=== PATIENT | female | born 1940 | race Caucasian/White ===

== ENCOUNTER → 2017-06-26 | Outpatient (CLI) | payer MEDICARE, BC ==
--- NOTE | 2017-06-26 16:37 | MR ---
EXAMINATION TYPE: MR lumbar spine wo con DATE OF EXAM: 06/26/2017 COMPARISON: 04/20/2015 HISTORY: Low back pain for many years, bilateral leg pain previous MRI on PACS CONTRAST: 0 mL intravenous Gadavist. TECHNIQUE: Multiplanar, multisequence images of the lumbar spine were acquired. FINDINGS: L5-S1: No significant disc bulge or disc herniation. No spinal canal stenosis. No foraminal stenosi s. Facet hypertrophy is present.. L4-L5: Mild disc bulge is present. Facet hypertrophy is present with posterior lateral thecal sac co ntact. No AP spinal canal stenosis is present. Neural foramen are patent. There is a minimal grade 1 spondylolisthesis at the L5-S1 level. L3-L4: No significant disc bulge or disc herniation. No spinal canal stenosis. No foraminal stenosi s. Neural foramen are patent.. L2-L3: No significant disc bulge or disc herniation. No spinal canal stenosis. No foraminal stenosi s. Neural foramen are patent.. L1-L2: No significant disc bulge or disc herniation. No spinal canal stenosis. No foraminal stenosi s. Neural foramen are patent.. T12-L1: No significant disc bulge or disc herniation. No spinal canal stenosis. No foraminal stenos is. Neural foramen are patent.. Exam is stable from comparison. IMPRESSION: 1. Disc bulging L4-5 with mild anterior thecal sac flattening and facet hypertrophy with posterior la teral thecal sac contact. Very minimal grade 1 spondylolisthesis may be present. The findings are sta ble from the comparison 2014.
== END | disposition home or self-care (01) ==
LOC: RADMRIMAIN 15:27
PROVIDERS: ATTEND Psychiatry & Neurology Neurology
DX: M51.26 Other intervertebral disc displacement, lumbar region (principal); Z88.0 Allergy status to penicillin
CPT/HCPCS: 72148

== ENCOUNTER → 2018-08-05 | Outpatient (CLI) | payer MEDICARE, BC ==
--- NOTE | 2018-08-07 10:11 | MM ---
Reason for exam: screening (asymptomatic). Last mammogram was performed 20 years and 2 months ago. History: Patient is postmenopausal and is nulliparous. Silicone gel implant in the left breast. Silicone gel implant in the right breast. Took estrogen for 14 years. Physical Findings: A clinical breast exam by your physician is recommended on an annual basis and results should be correlated with mammographic findings. MG Screening Mammo Implant/CAD Bilateral CC, MLO, and ID view(s) were taken. No prior studies available for comparison. There is no discrete abnormality. Bilateral breast prothesis. These results were verbally communicated with the patient and result sheet given to the patient on 08/05/18. ASSESSMENT: Negative, BI-RAD 1 RECOMMENDATION: Routine screening mammogram of both breasts in 1 year.
== END | disposition home or self-care (01) ==
LOC: RADMAMWWP 14:36
PROVIDERS: ATTEND Surgery
DX: Z12.31 Encounter for screening mammogram for malignant neoplasm of breast (principal)
CPT/HCPCS: 77067

== ENCOUNTER → 2018-10-15 | Outpatient (CLI) | payer MEDICARE, BC ==
--- NOTE | 2018-10-16 11:59 | BD ---
EXAMINATION TYPE: Axial Bone Density DATE OF EXAM: 10/15/2018 COMPARISON: 2008 CLINICAL HISTORY: Postmenopausal female. Osteoporosis screening. Height: 5FT 6 IN Weight: 261 FRAX RISK QUESTIONS: History of Fracture in Adulthood: YES Secondary Osteoporosis: 3. Menopause before 45: UNSURE Rheumatoid Arthritis: YES RISK FACTORS HISTORY OF: Family History of Osteoporosis: YES Active: NO Postmenopausal woman: TOTAL HYST UNSURE WHEN MEDICATIONS: Additional Medications: METHOTREXATE INJ ONCE A WEEK ,PROZAC, GABAPENTIN, TRAZADONE, CLONIPIN, ACETA METAPHEN, Additional History: EXAM MEASUREMENTS: Bone mineral densitometry was performed using the hopscout System. Bone mineral density as measured about the Lumbar spine is: ----- L1-L4(G/cm2): 1.066 T Score Values are as follows: ----- L2: -1.1 ----- L3: -1.4 ----- L4: -0.4 ----- L1-L4: -1.0 Bone mineral density has: DECREASED -4.7 % since study of: 2008 Bone mineral density about the R hip (g/cm2): 0.833 Bone mineral density about the L hip (g/cm2): 0.742 T Score values are as follows: -----R Neck: -1.5 -----L Neck: -2.1 -----R Total: -0.7 -----L Total: -0.9 Bone mineral density has: DECREASED -8.2 % since study of: 2008 IMPRESSION: Osteopenia (T Score between -2.5 and -1). There is slightly increased risk of fracture and the patient may be considered for treatment. Re-Screen 2-5 years. NOTE: T-SCORE=SD OF THE YOUNG ADULT MEAN.
== END | disposition home or self-care (01) ==
LOC: RADBDWWP 14:02
PROVIDERS: ATTEND Internal Medicine Geriatric Medicine
DX: M85.80 Other specified disorders of bone density and structure, unspecified site (principal)
CPT/HCPCS: 77080

== ENCOUNTER → 2019-12-22 | Outpatient (CLI) | payer MEDICARE, BC ==
[2019-12-22 13:46] VITALS: BP 134/77; PULSE 60; RESP 18
--- NOTE | 2019-12-22 14:07 | P.PAINCN ---
History of Present Illness - Reason for Consult Consult date: 12/22/19 - History of Present Illness This is an initial consultation visit for this 79 years old female with a chronic history of severe low back pain, pain started almost 15 years ago, she denies any initiating event , the pain is constant and increases with any activity interference with the quality of life, mostly localized in the low back area with radiation to the hip bilaterally and the buttock, the intensity of the pain interfering with her ability to ambulate, she uses a cane to ambulate, she denies any fever or night sweats denies , intensity of the pain is 6/10 increased with any activities to 8-9/10, she is currently on Neurontin 300 mg 3 times a day and Motrin 800 mg 3 times a day with minimal benefit. Past Medical History Past Medical History: Fibromyalgia, GERD/Reflux, Rheumatoid Arthritis (RA) Additional Past Medical History / Comment(s): OSTEOPOROSIS. CHRONIC BACK PAIN History of Any Multi-Drug Resistant Organisms: None Reported Past Surgical History: Adenoidectomy, Appendectomy, Hysterectomy, Joint Replacement, Tonsillectomy Additional Past Surgical History / Comment(s): RT TKA Past Anesthesia/Blood Transfusion Reactions: No Reported Reaction Past Psychological History: Anxiety, Depression Smoking Status: Never smoker Past Alcohol Use History: None Reported Past Drug Use History: None Reported - Past Family History Father Family Medical History: Coronary Artery Disease (CAD) Mother Family Medical History: Coronary Artery Disease (CAD) Medications and Allergies Home Medications Medication Instructions Recorded Confirmed Type FLUoxetine HCL [PROzac] 60 mg PO DAILY 05/06/17 12/22/19 History Gabapentin [Neurontin] 300 mg PO TID 05/06/17 12/22/19 History Omeprazole 20 mg PO DAILY PRN 05/06/17 12/22/19 History clonazePAM [Clonazepam] 2 mg PO HS 05/06/17 12/22/19 History traZODone HCL [TraZODone HCl] 150 mg PO HS 05/06/17 12/22/19 History Ibuprofen [Motrin] 800 mg PO Q4-6H PRN 08/20/17 12/22/19 History Acetaminophen [Tylenol 8 Hour] 650 mg PO DAILY PRN 12/21/19 12/22/19 History Methotrexate/Pf [Rasuvo 10 mg/0.2 50 mg SQ TU 12/21/19 12/22/19 History ml Autoinj] Allergies Allergy/AdvReac Type Severity Reaction Status Date / Time ciprofloxacin [From Cipro] Allergy Severe Nausea & Verified 12/21/19 12:44 Vomiting & Diarrhea Penicillins Allergy Severe Swelling Verified 12/21/19 12:44 morphine AdvReac Nausea & Verified 12/21/19 12:44 Vomiting Physical Exam Vitals: Vital Signs Pulse Resp BP Pulse Ox 12/22/19 13:42 60 18 134/77 94 L REVIEW OF ORGAN SYSTEMS: CONSTITUTIONAL: No fevers or chills. No recent weight loss. EYES: denies troubles with vision. HEENT: No difficulties with hearing. No nosebleeds. No difficulty swallowing. RESPIRATORY: Denies any troubles with breathing or dyspnea on exertion. CARDIOVASCULAR: Denies any chest pain, palpitations, or recent heart attacks. GASTROINTESTINAL: Denies fatty food intolerance. Has change in bowel habits and gas bloat. GENITOURINARY: Denies any blood in urine. Has increased urinary frequency. NEUROLOGICA=. No seizure disorders or headaches. MUSCULOSKELETAL: Has back pain with radiation to the hips and buttock area. SKIN:no skin cancer. No rash. PSYCHIATRIC: Denies current depression or suicidal thoughts. ENDOCRINE: Denies current thyroid disorders. Denies any blood sugar glucose intolerance. HEME/LYMPHATIC: Denies any lumps and bumps around the neck. History of deep venous thrombosis. ALLERGY/IMMUNOLOGY: No immunoglobulin therapy. No immune deficiencies. BREAST: Denies current breast lumps, pain or nipple discharge. Physical Examinations : Constitutiona : Cooperative , not in acute distress . HEENT : nech : supple , no Lymphadenopathy , normal thyroid size . : eyes no ptosis , no icterus, no photophobia . : ENT normal of hearing , no rmal oropharynx , no Thrush . Respiratory : Chest clear to auscultations Bilaterally , no wheezing , no Rhonchi . Cardiovascula : regular rate and rhythem , S1 , S2 , no S3 , no S4. Gastrointestina : abdomen soft no tenderness , bowel sounds , no organomegally . Genitourinary : Defferred . neurologic : Cranial nerve II to XII intact , no focal neurological deffecit . psychatric : alert , oriented X 3 , appropriate affect , intact judgment and insight . Lymphatic : no Lymphadenopathy . musculoskeltal : Lumber spine moter stegnth lower extremities ,thigh and legs 5/5 Right side , 5/5 Left side deep tendon reflexes : normal Knee Jerk , normal ankle Jerk lumber facet Loading Test= positive Right , positive Left Range of motion of the lumbar spine Flexion 30 degrees, extension 10 degrees strait leg raising test = positive at 60 degree on the left side and is negative on the right side Fabere test= negative bilaterally Sever tenderness over the Sacroiliac joint on the Right , and Left sides Gaenslen test= positive bilaterally. Seated flexion test= positive bilaterally. Results Comments: MRI of the lumbar spine done at [facility]= L4 5 and L5-S1 lumbar facet arthropathy Assessment and Plan Plan: Assessment and plan= chronic severe low back pain secondary to lumbar spondylosis and lumbar facet arthropathy Patient will be good candidate for diagnostic medial branch block lumbar area at L3, L4 ,L5 (to target the facet joint at the L4-5 ,L5-S1 ) Benefits positive then will proceed with radiofrequency thermocoagulation. Time with Patient: Greater than 30 PQRS Measure Charge Sheet Measure #130: Documentation of Current Meds in Medical Chart: Patient's medications documented in chart Measure #226: Tobacco Use: Screen & Cessation Intervention: Pt not a tobacco user Measure #111: Pneumonia Vaccination: Pneumococcal vaccine NOT administered or previously given Measure #47: Advance Care Plan: Advance care planning discussed & documented, pt chose/unable to give Measure #412: Opioid Treatment Agreement: No documentation of signed opioid treatment agreement Measure #408: Opioid Therapy Follow-up Evaluation: Patient had NO f/u eval minimum every 3 months during opioid therapy Measure #317: Preventitive Care & Scrn High Bld Press & F/U: Normal blood pressure, f/u not required Measure #128: Body Mass Index (BMI) Screening & Follow-up: BMI documented ABOVE normal parameters - f/u documented Measure #131: Pain Assessment & Follow-up: Pain positive & plan documented, F ollow-up scheduled Measure #431: Unhealthy Alcohol Use Preventative Care & Scrn: Patient not identified as an unhealthy alcohol user PQRS Narrative: Smoking Status Never smoker Blood Pressure 134/77 Pain Intensity [Lower Back] 8 Scale Used Numeric (1 - 10) Home Medications: Ambulatory Orders FLUoxetine HCL [PROzac] 60 mg PO DAILY 05/06/17 Gabapentin [Neurontin] 300 mg PO TID 05/06/17 Omeprazole 20 mg PO DAILY PRN 05/06/17 clonazePAM [Clonazepam] 2 mg PO HS 05/06/17 traZODone HCL [TraZODone HCl] 150 mg PO HS 05/06/17 Ibuprofen [Motrin] 800 mg PO Q4-6H PRN 08/20/17 Acetaminophen [Tylenol 8 Hour] 650 mg PO DAILY PRN 12/21/19 Methotrexate/Pf [Rasuvo 10 mg/0.2 ml Autoinj] 50 mg SQ TU 12/21/19
== END | disposition home or self-care (01) ==
LOC: PNWHC3 12:21
PROVIDERS: ATTEND Specialist
DX: G89.29 Other chronic pain (principal); M47.816 Spondylosis without myelopathy or radiculopathy, lumbar region; M81.0 Age-related osteoporosis without current pathological fracture; M06.9 Rheumatoid arthritis, unspecified; Z79.1 Long term (current) use of non-steroidal anti-inflammatories (NSAID); Z79.899 Other long term (current) drug therapy; Z88.1 Allergy status to other antibiotic agents; Z88.0 Allergy status to penicillin; Z88.5 Allergy status to narcotic agent
CPT/HCPCS: 99211

== ENCOUNTER → 2020-01-07 | Day surgery (SDC) | payer MEDICARE, BC ==
[2020-01-06 08:40] VITALS: BMI 41.0
[~2020-01-07] MED LIST: IOPAMIDOL M200 10 ML VIAL ONE; IV FLUID CONTINUATION 1,000 ML IV ONE; LACTATED RINGERS 1,000 ML IV SCH; LIDOCAINE 1% (10MG/ML) FOR IV START INTRADERMA ONE; LIDOCAINE 4% (PF) 5 ML AMP ONE; MIDAZOLAM 2 MG/2 ML VIAL ONE
[2020-01-07 09:16] VITALS: RESP 16; TEMP 98.3
[2020-01-07 09:37] LABS: Glucose,Whole Blood 115 mg/dL (75-99)
--- NOTE | 2020-01-07 10:20 | FL ---
EXAMINATION TYPE: FL guided pain mgmt statistic DATE OF EXAM: 01/07/2020 CLINICAL HISTORY: Low back pain. TECHNIQUE: Fluoroscopy. COMPARISON: None. FINDINGS: Fluoroscopic guidance was provided during pain relief procedure performed by Dr. Lance. A t otal of 5 seconds of fluoroscopic time was utilized during the procedure and 3 spot images are acquir ed. Images acquired shows needle localization at several levels in the lower lumbar spine. IMPRESSION: As Above.
[2020-01-07 10:24] VITALS: BP 133/77; PULSE 57
--- NOTE | 2020-01-07 11:42 | P.PCN ---
Date of Procedure: 01/07/20 Procedure(s) Performed: PREOPERATIVE DIAGNOSIS : Lumbar spondylosis with Facet Arthropathy without myelopathy POSTOPERATIVE DIAGNOSIS: same PROCEDURE: First Diagnostic lumbar medial branch block with fluoroscopy at L3, L4, L5 [bilateral] which covers facets L4-5 and L5-S1 ANESTHESIA: Local anesthetic; moderate IV sedation with Versed, sedation time 10 minutes Fluoroscopy was used for the procedure and images were saved in the radiology portion of the chart. Surgeon: Asael Lance MD PROCEDURE INDICATION: Lumbar back pain without radiculopathy, not responsive to conservative management. PROCEDURE DESCRIPTION: the patient was seen and identified in the preop holding area , risks and benefits and possible complications of the procedure and alternatives were discussed with the patient, and the patient agreed to proceed with the procedure and signed the consent . IV was started , vital signs were monitored during the procedure and fluoroscopy was used to maximize the benefit and accuracy of the needle placement, and sedation was given to decrease patient anxiety. Patient was taken to the procedure room and placed in prone position. The lumbar region was prepped using chlorhexidineX-2. Under strict sterile technique using AP fluoroscopy the bilateral sacral ala were identified and using ipsilateral oblique fluoroscopy ,the junction of the transverse process and the superior articulating process of the L4, L5 vertebra which corresponds to the fluoroscopy image of the eye of the Reinaldo dog for the medial branches were identified. Subsequently, after local infiltration of skin with lidocaine 1% 0.2 mL at each level , a 22-gauge 5 inch Quincke-type needle was placed at the junction of the base of the transverse process and the superior articular process at the appropriate level as well as the sacral ala, and the needle was advanced until the periosteum contacted, needle placement confirmed with AP and oblique fluoroscopy, 0.2 mL of Isovue 200 per level was injected which revealed no vascular uptake and after negative aspiration, 0.5 mL of lidocaine 4% was injected at each level and the needle subsequently removed . At the end of the procedure and the needles were removed and a bandage applied after the skin was cleaned. The patient was taken to recovery room in stable condition and monitors in the recovery room for 20-30 minutes and discharged home in stable condition after discharge criteria met and patient will follow up in clinic in 2 weeks EBL: Minimal COMPLICATION: None.
== END ==
LOC: ORPAIN 08:32
PROVIDERS: ATTEND Anesthesiology
DX: M47.816 Spondylosis without myelopathy or radiculopathy, lumbar region (principal); Z90.710 Acquired absence of both cervix and uterus; Z88.0 Allergy status to penicillin; Z88.5 Allergy status to narcotic agent
CPT/HCPCS: 64493; 64494; J2001; J2250; Q9966; 99152

== ENCOUNTER → 2020-01-28 | Day surgery (SDC) | payer MEDICARE, BC ==
[2020-01-27 08:37] VITALS: BMI 41.0
[~2020-01-28] MED LIST changes: -IOPAMIDOL M200 10 ML VIAL ONE; +LACTATED RINGERS 1,000 ML IV ONE; -LIDOCAINE 4% (PF) 5 ML AMP ONE; +ROPIVACAINE 5MG/ML 20ML VIAL ONE; +fentaNYL (PF) 50 MCG/ML 2 ML AMP ONE; +methylPREDNISolone ACETATE 40 MG/ML 1 ML VIAL ONE
[2020-01-28 09:35] VITALS: RESP 20; TEMP 97.9
[2020-01-28 09:44] LABS: Glucose,Whole Blood 115 mg/dL (75-99)
--- NOTE | 2020-01-28 10:34 | P.PCN ---
Date of Procedure: 01/28/20 Procedure(s) Performed: PREOPERATIVE DIAGNOSIS : 1- Lumbar spondylosis with Facet Arthropathy without myelopathy . POSTOPERATIVE DIAGNOSIS: 1- Lumbar spondylosis with Facet Arthropathy without myelopathy . PROCEDURE: Diagnostic bilateral L3 , L4 , and L5 medial branch block under fluoroscopy guidance(fluoroscopy images available in the radiology Department ) ( To target the facet joint between L4-5 , and L5-S1 ) ANESTHESIA:, moderate sedation with intravenous Versed 2 mg and Fentanyl 50 mcg. EBL: Minimal COMPLICATION: None. IV FLUIDS: 100 mL of normal saline. PROCEDURE INDICATION: Chronic low back pain secondary to Facet arthropathy unresponsive to conservative treatment. PROCEDURE DESCRIPTION: the patient was seen and identified in the preop holding area , risks and benefits and possible complications of the procedure and alternative were discussed with the patient, and the patient agreed to proceed with the procedure and signed the consent IV was started and vital signs monitored during the procedure and fluoroscopy was used to maximize the benefit and accuracy of the needle placement, and sedation was given to decrease patient anxiety, patient was taken to the procedure room and placed in prone position vital signs monitored in the back prepped with chlorhexidine X3 then under strict sterile technique using a right oblique fluoroscopy ,the junction of the transverse process and the superior articulating process of the right L3 , L4 , and L5 vertebra which corresponding to the fluoroscopy image of the eye of the Reinaldo dog on the block side for the medial branches and subsequently , after local infiltration of skin and subcu tissuies with Ropivacaine 0.5 % , one mL at each level ,then 22-gauge 5 inches long Quincke-type needles , 3 needle was used , each one of them placed at the junction of the base of the transverse process and the superior articular process at the appropriate level, and the needle was advanced until the periosteum contacted, needle placement confirmed with AP oblique and lateral view and after appropriate needle placement confirmed, and after negative aspiration for heme and CSF and there was no paresthesia 1-1/2 mL of Ropivacaine 0.5% mixed with 20 mg Depo-Medrol , then half mL injected at each level after negative aspiration the needle subsequently removed and the same procedure repeated for the left side at left side at L3 , L4 and L5 levels. At the end of the procedure and the needles removed and a bandage applied after the skin was cleaned the cleaning solution patient taken to recovery room in stable condition and monitors in the recovery room for 20-30 minutes and discharged home in stable condition after discharge criteria met and patient will follow up with the pain clinic in 2-4 weeks
[2020-01-28 11:01] VITALS: BP 135/65; PULSE 57
--- NOTE | 2020-01-28 16:43 | FL ---
EXAMINATION TYPE: FL guided pain mgmt statistic DATE OF EXAM: 01/28/2020 CLINICAL HISTORY: Low back pain. TECHNIQUE: Fluoroscopy. COMPARISON: None. FINDINGS: Fluoroscopic guidance was provided during pain relief procedure performed by Dr. Jimenez . A total of 34 seconds of fluoroscopic time was utilized during the procedure and 4 spot images are acquired. Images acquired shows needle localization at multiple levels in the lumbar spine. IMPRESSION: As Above.
== END ==
LOC: ORPAIN 09:08
PROVIDERS: ATTEND Specialist
DX: G89.29 Other chronic pain (principal); M47.816 Spondylosis without myelopathy or radiculopathy, lumbar region; Z90.710 Acquired absence of both cervix and uterus; Z88.0 Allergy status to penicillin; Z88.5 Allergy status to narcotic agent
CPT/HCPCS: 64493; 64494; J2250; J1030; J3010; J2795; 99152

== ENCOUNTER → 2020-02-24 | Outpatient (CLI) | payer MEDICARE, BC ==
[2020-02-24 12:19] VITALS: BP 141/76; PULSE 60; RESP 14
--- NOTE | 2020-02-24 12:49 | P.PN ---
Subjective Progress Note Date: 02/24/20 This is follow up visit for this 80 years old female with a chronic history of s evere low back pain, pain started almost 15 years ago, she denies any initiating event , the pain is constant and increases with any activity interference with the quality of life, mostly localized in the low back area with radiation to the hip bilaterally and the buttock, the intensity of the pain interfering with her ability to ambulate, she uses a cane to ambulate, she denies any fever or night sweats denies , intensity of the pain is 6/10 increased with any activities to 8-9/10, she is currently on Neurontin 300 mg 3 times a day and Motrin 800 mg 3 times a day with minimal benefit. Recently we have done diagnostic medial branch block lumbar area at L3, L4, L5 x2 , she reported that her pain was 9/10 before the first block at dropped to 2/10 after the block but the pain relief was only for a few days, eventually got similar result after the second diagnostic medial branch block Objective - Vital Signs Vital signs: Vital Signs Temp Pulse 60 02/24/20 12:10 Resp 14 02/24/20 12:10 BP 141/76 02/24/20 12:10 Pulse Ox 91 L 02/24/20 12:10 - Exam Constitutiona : Cooperative , not in acute distress . HEENT : nech : supple , no Lymphadenopathy , normal thyroid size . : eyes no ptosis , no icterus, no photophobia . neurologic : Cranial nerve II to XII intact , no focal neurological deffecit . psychatric : alert , oriented X 3 , appropriate affect , intact judgment and insight . Lymphatic : no Lymphadenopathy . musculoskeltal : Lumber spine moter stegnth lower extremities ,thigh and legs 5/5 Right side , 5/5 Left side deep tendon reflexes : normal Knee Jerk , normal ankle Jerk lumber facet Loading Test= positive Right , positive Left Range of motion of the lumbar spine Flexion 30 degrees, extension 10 degrees strait leg raising test = positive at 60 degree on the left side and is negative on the right side Fabere test= negative bilaterally Sever tenderness over the Sacroiliac joint on the Right , and Left sides Gaenslen test= positive bilaterally. Seated flexion test= positive bilaterally. Assessment and Plan Plan: Assessment and plan= chronic severe low back pain secondary to lumbar spondylosis and lumbar facet arthropathy Patient had a good result with the diagnostic medial branch block lumbar area at L3, L4 ,L5 And she will be good candidate to have RFA of the medial branch to denervate the facet joint at L4-5, and L5-S1 ) PQRS Measure Charge Sheet Measure #130: Documentation of Current Meds in Medical Chart: Patient's medications documented in chart Measure #226: Tobacco Use: Screen & Cessation Intervention: Pt not a tobacco user Measure #111: Pneumonia Vaccination: Pneumococcal vaccine NOT administered or previously given Measure #47: Advance Care Plan: Advance care planning discussed & documented, pt chose/unable to give Measure #412: Opioid Treatment Agreement: No documentation of signed opioid treatment agreement Measure #408: Opioid Therapy Follow-up Evaluation: Patient had NO f/u eval minimum every 3 months during opioid therapy Measure #317: Preventitive Care & Scrn High Bld Press & F/U: Elevated blood pressure 141/76, she will follow up with the primary care Measure #128: Body Mass Index (BMI) Screening & Follow-up: BMI documented ABOVE normal parameters - f/u documented Measure #131: Pain Assessment & Follow-up: Pain positive & plan documented, Follow-up scheduled Measure #431: Unhealthy Alcohol Use Preventative Care & Scrn: Patient not identified as an unhealthy alcohol user PQRS Narrative:
== END | disposition home or self-care (01) ==
LOC: PNWHC3 11:42
PROVIDERS: ATTEND Specialist
DX: M47.816 Spondylosis without myelopathy or radiculopathy, lumbar region (principal); M46.96 Unspecified inflammatory spondylopathy, lumbar region; G89.29 Other chronic pain
CPT/HCPCS: 99211

== ENCOUNTER 2020-03-17 08:29 | Day surgery (SDC) | payer MEDICARE, BC ==
[2020-03-15 13:53] VITALS: BMI 41.5
[~2020-03-17 08:29] MED LIST changes: -IV FLUID CONTINUATION 1,000 ML IV ONE; -LACTATED RINGERS 1,000 ML IV ONE; -LIDOCAINE 1% (10MG/ML) FOR IV START INTRADERMA ONE; -MIDAZOLAM 2 MG/2 ML VIAL ONE; -ROPIVACAINE 5MG/ML 20ML VIAL ONE; -fentaNYL (PF) 50 MCG/ML 2 ML AMP ONE; -methylPREDNISolone ACETATE 40 MG/ML 1 ML VIAL ONE
[2020-03-17 09:14] VITALS: TEMP 97.2
[2020-03-17] MEDS ORDERED: LIDOCAINE 1% (10MG/ML) FOR IV START INTRADERMA ONE (09:14)
[2020-03-17] MEDS ORDERED: fentaNYL (PF) 50 MCG/ML 2 ML AMP ONE (09:47)
[2020-03-17] MEDS ORDERED: methylPREDNISolone ACETATE 40 MG/ML 1 ML VIAL ONE (09:47)
[2020-03-17] MEDS ORDERED: MIDAZOLAM 2 MG/2 ML VIAL ONE (09:47)
[2020-03-17] MEDS ORDERED: ROPIVACAINE 5MG/ML 20ML VIAL ONE (09:47)
--- NOTE | 2020-03-17 10:27 | P.PCN ---
Date of Procedure: 03/17/20 Procedure(s) Performed: PREOPERATIVE DIAGNOSIS: 1-Lumbar Spondylosis with Facet Arthropathy without myelopathy. 2- Lumber degenerative disc disease POSTOPERATIVE DIAGNOSIS: 1- Lumbar Spondylosis with Facet Arthropathy without myelopathy. 2- Lumber degenerative disc disease PROCEDURES : Bilateral Radiofrequency thermocoagulation, L3 , L4 , and L5 medial branch, with fluoroscopic guidance (fluoroscopy images available in the radiology department) ( to denervate the facet joint at L4-5 ,and L5-S1 levels ) ANESTHESIA: Moderate sedation with intravenous versed 2 mg and fentaneyl 100 mcg, and local infiltration with Ropivacaine 0.5 % . EBL: Minimal PROCEDURE INDICATION: The patient with low back pain secondary to lumbar facet arthropathy who had more than 50% relief of her pain with previous diagnostic lumbar medial branch block with bupivacaine. PROCEDURE DESCRIPTION / TECHNIQUE: The patient was seen and identified in the preoperative area. Risks, benefits, complications, including but not limited to risk of infection ,bleeding , allergic reactions to the medications and no complete pain releife , and alternatives were discussed with the patient, the patient agreed to proceed with the procedure and signed the consent. IV was started. Vital signs remained stable throughout the procedure. Patient was taken to the OR and time out was completed. The patient was placed in the prone position on the procedure table. The lumber area was prepped and draped in the usual sterile fashion. . Vital signs were closely monitored during the procedure .IV sedation was used during the procedure to decrease patients anxiety. Using AP and then oblique fluoroscopy, the ``eye of the Reinaldo dog corresponding to the connection between the superior and transverse articular processes of right L3, L4, and L5 were identified, marked, and localized with 1% lidocaine. Subsequently, a [id number] radiofrequency cannula with a 10- mm active tip was advanced guided by fluoroscopy to each of the``eyes of the Reinaldo dog at right L3, L4, and L5. Each site then underwent sensory testing at 50 Hz and 0 to 1 volt and motor testing at 2.5 Hz and 0 to 3 volt with local stimulation, but no radicular symptoms down the legs. Thereafter each sites underwent radiofrequency thermocoagulation at 80 degrees celsius for 90 seconds after injecting 0.5 ml of PF Ropivacaine 1ml, then after the thermocoagulation done , 1 ml of the block solution containing Depo-Medrol 20 mg and 3 ml of Ropivacaine 0.5% was injected at the right L3 , L4 , and L5 , levels after negative aspiration of CSF and blood and with no paresthesias. Cannulas were retracted while injecting lidocaine 1% until the needle is out. The same procedure was repeated at the level of Left L3, L4, and L5 levels. At the end of the procedure, the skin was cleansed and bandages were applied. COMPLICATIONS: No acute complications. DISPOSITION / PLANS: The patient was placed in a supine position and transferred to the recovery area in a stable condition for observation and was discharged from the recovery room after meeting discharge criteria. Home discharge instructions given to the patient by the staff. The patient was reexamined prior to discharge. The patient will schedule a follow up in the clinic in 2-4 weeks.
[2020-03-17] MEDS ORDERED: IV FLUID CONTINUATION 500 ML IV ONE (10:32)
[2020-03-17 10:36] VITALS: RESP 16
[2020-03-17 10:52] VITALS: BP 122/72; PULSE 52
--- NOTE | 2020-03-17 15:06 | FL ---
Fluoroscopy INDICATION: Pain FINDINGS: Fluoroscopy time: 15 seconds. Images obtained: 7. IMPRESSIONS: 1. Documentation of fluoroscopy.
== END 2020-03-17 11:02 | disposition home or self-care (01) ==
LOC: ORPAIN 08:29
PROVIDERS: ATTEND Specialist
DX: M47.816 Spondylosis without myelopathy or radiculopathy, lumbar region (principal); M51.36 Other intervertebral disc degeneration, lumbar region; Z88.5 Allergy status to narcotic agent; Z88.0 Allergy status to penicillin
CPT/HCPCS: 64635; 64636; J2250; J1030; J3010; J2795; 99152; 99153

== ENCOUNTER → 2020-03-22 | Outpatient (CLI) | payer MEDICARE, BC ==
--- NOTE | 2020-03-22 14:13 | US ---
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 EXAM MEASUREMENTS: RIGHT: Peak Systolic Velocity (PSV) cm/sec ----- Right CCA: 85.6 ----- Right ICA: 114.7 ----- Right ECA: 90.0 ICA/CCA ratio: 1.3 RIGHT: End Diastole cm/sec ----- Right CCA: 15.8 ----- Right ICA: 26.0 ----- Right ECA: 11.5 LEFT: Peak Systolic Velocity (PSV) cm/sec ----- Left CCA: 82.2 ----- Left ICA: 42.7 ----- Left ECA: 54.0 ICA/CCA ratio: 0.5 LEFT: End Diastole cm/sec ----- Left CCA: 14.4 ----- Left ICA: 9.6 ----- Left ECA: 54.0 VERTEBRALS (direction of flow): Right Vertebral: Antegrade Left Vertebral: Antegrade Rhythm: Normal Grayscale images show no significant focal plaque at carotid bulb level bilaterally. Velocity measure ments and ratios are within normal limits. IMPRESSION: No hemodynamic significant stenosis in either internal carotid artery . Criteria for Assigning % of Stenosis / Diameter reduction (Estimation based on the indirect measurements of the internal carotid artery velocities (ICA PSV). 1. Normal (no stenosis)=ICA PSV < 125 cm/s: ratio < 2.0: ICA EDV<40 cm/s. 2. Less than 50% stenosis=ICA PSV < 125 cm/s: ratio < 2.0: ICA EDV<40 cm/s. 3. 50 to 69% stenosis=ICA PSV of 125 to 230 cm/s: ration 2.0 ? 4.0: ICA EDV 40-100 cm/s. 4. Greater than 70% stenosis to near occlusion= ICA PSV > 230 cm/s: ratio > 4.0: ICA EDV > 100 cm/s. 5. Near occlusion= ICA PSV velocities may be low or undetectable: variable ratio and ICA EDV. 6. Total occlusion=unable to detect flow.
--- NOTE | 2020-03-23 18:59 | ECHOF ---
Referral Reason:I34.0 NoN Rheumatic mitrial regurgitation MEASUREMENTS -------- HEIGHT: 170.2 cm WEIGHT: 115.7 kg BP: 155/75 RVIDd: 3.0 cm (< 3.3) IVSd: 1.5 cm (0.6 - 1.1) LVIDd: 4.9 cm (3.9 - 5.3) LVPWd: 1.5 cm (0.6 - 1.1) IVSs: 2.1 cm LVIDs: 3.4 cm LVPWs: 1.4 cm LA Diam: 3.9 cm (2.7 - 3.8) LAESV Index (A-L): 25.64 ml/m Ao Diam: 3.3 cm (2.0 - 3.7) AV Cusp: 2.5 cm (1.5 - 2.6) MV EXCURSION: 11.820 mm (> 18.000) MV EF SLOPE: 45 mm/s (70 - 150) EPSS: 1.0 cm MV E Baldemar: 0.78 m/s MV DecT: 229 ms MV A Baldemar: 1.07 m/s MV E/A Ratio: 0.73 AR PHT: 813 ms RAP: 5.00 mmHg RVSP: 40.23 mmHg FINDINGS -------- Sinus rhythm. This was a technically adequate study. The left ventricular size is normal. There is moderate concentric left ventricular hypertrophy. O verall left ventricular systolic function is normal with, an EF between 60 - 65 %. The right ventricle is normal in size. Normal LA size by volume 22+/-6 ml/m2. The right atrium is normal in size. Interatrial and interventricular septum intact. There is mild aortic valve sclerosis. There is mild aortic regurgitation. Mild mitral annular calcification present. There is trace to mild mitral regurgitation. Mild tricuspid regurgitation present. There is mild pulmonary hypertension. The pulmonic valve was not well visualized. The aortic root size is normal. IVC Not well visulized. Echo free space represents a pericardial fat pad. There is no pericardial effusion. CONCLUSIONS -------- 1. The left ventricular size is normal. 2. There is moderate concentric left ventricular hypertrophy. 3. Overall left ventricular systolic function is normal with, an EF between 60 - 65 %. 4. There is mild aortic valve sclerosis. 5. There is mild aortic regurgitation. 6. Mild mitral annular calcification present. 7. There is trace to mild mitral regurgitation. 8. Mild tricuspid regurgitation present. 9. There is mild pulmonary hypertension. 10. Echo free space represents a pericardial fat pad. 11. There is no pericardial effusion. SLACKMAN: Pina Esteban RDCS
== END | disposition home or self-care (01) ==
LOC: RADUSWWP 12:21
PROVIDERS: ATTEND Internal Medicine Geriatric Medicine
DX: I08.3 Combined rheumatic disorders of mitral, aortic and tricuspid valves (principal); I27.20 Pulmonary hypertension, unspecified; I65.23 Occlusion and stenosis of bilateral carotid arteries
CPT/HCPCS: 93306; 93880

== ENCOUNTER → 2020-04-06 | Outpatient (CLI) | payer MEDICARE, BC ==
[2020-04-06 14:32] VITALS: BP 135/77; PULSE 57; RESP 16; TEMP 98.2
--- NOTE | 2020-04-07 07:37 | P.PN ---
Subjective Progress Note Date: 04/06/20 This is follow up visit for this 80 years old female, with a chronic history of severe low back pain she is diagnosed with lumbar spondylosis with lumbar facet arthropathy without myelopathy, status post RFA of the medial branch lumbar area bilaterally, patient currently complaining of severe low back pain mainly in the left side buttock area, she denies any motor or sensory deficit and she reported that the pain increases with any activity, she denies any fever or night sweats under is no change in the bowel movement or urination, and continues to use Neurontin 300 mg 3 times a day, and Motrin when necessary, he denies any side effect of the medication Objective - Vital Signs Vital signs: Vital Signs Temp 98.2 F 04/06/20 14:27 Pulse 57 L 04/06/20 14:27 Resp 16 04/06/20 14:27 BP 135/77 04/06/20 14:27 Pulse Ox 94 L 04/06/20 14:27 - Exam Constitutiona : Cooperative , not in acute distress . HEENT : nech : supple , no Lymphadenopathy , normal thyroid size . : eyes no ptosis , no icterus, no photophobia . neurologic : Cranial nerve II to XII intact , no focal neurological deffecit . psychatric : alert , oriented X 3 , appropriate affect , intact judgment and insight . Lymphatic : no Lymphadenopathy . musculoskeltal : Lumber spine moter stegnth lower extremities ,thigh and legs 5/5 Right side , 5/5 Left side deep tendon reflexes : normal Knee Jerk , normal ankle Jerk lumber facet Loading Test= positive Right , positive Left Range of motion of the lumbar spine Flexion 30 degrees, extension 10 degrees strait leg raising test = positive at 60 degree on the left side and is negative on the right side Fabere test= negative bilaterally Sever tenderness over the Sacroiliac joint on the Left sides Gaenslen test= positive left side . Seated flexion test= positive left side . Results Comments: MRI of the lumbar spine done at [facility]= L4 5 and L5-S1 lumbar facet arthropathy Assessment and Plan Plan: Assessment and plan=1-lumbar spondylosis with lumbar facet arthropathy without myelopathy Status post RFA of the medial branch lumbar area bilaterally. 2-left sacroiliitis. she could benefit from left-sided sacroiliac joint steroid injection under fluoroscopy guidance. Patient should continue Neurontin 300 mg 3 times a day and Motrin when necessary as prescribed by her primary care - PQRS measures = - Patient's medications are documented in the chart. -Tobacco use is negative and counseling.Given. -Patient's has not received pneumococcal vaccine. -Advanced care planning discussed, patient not eligible. -Opiate contract not signed. -Pain positive and follow-up visit/procedure is scheduled. -Patient's blood pressure measured [ 135/77 ] , and documented in the record ,and patient will follow up with the primary care. -Patient's weight was measured and body mass index [40.9 ] above the normal limits and counseling was done. and patient instructed to follow-up with the primary care physician. -Patient was not identified as an unhealthy alcohol user
== END | disposition home or self-care (01) ==
LOC: PNWHC3 13:37
PROVIDERS: ATTEND Specialist
DX: M47.816 Spondylosis without myelopathy or radiculopathy, lumbar region (principal)
CPT/HCPCS: 99211

== ENCOUNTER 2020-04-19 09:42 | Day surgery (SDC) | payer MEDICARE, BC ==
[2020-04-18 13:02] VITALS: BMI 40.8
[2020-04-19 09:57] VITALS: TEMP 98.1
[2020-04-19] MEDS ORDERED: LIDOCAINE 1% (10MG/ML) FOR IV START INTRADERMA ONE (10:21)
[2020-04-19] MEDS ORDERED: TRIAMCINOLONE ACETONIDE 40 MG/ML 1 ML VIAL ONE (10:39)
[2020-04-19] MEDS ORDERED: ROPIVACAINE 5MG/ML 20ML VIAL ONE (10:39)
[2020-04-19] MEDS ORDERED: MIDAZOLAM 2 MG/2 ML VIAL ONE (10:39)
[2020-04-19] MEDS ORDERED: fentaNYL (PF) 50 MCG/ML 2 ML AMP ONE (10:39)
--- NOTE | 2020-04-19 10:48 | P.PCN ---
Date of Procedure: 04/19/20 Surgeon: Kylah Russo Pathology: none sent Condition: stable Disposition: PACU Description of Procedure: Preoperative diagnoses= sacroiliac joint dysfunction and sacroiliitis on the l eft side Postoperative diagnoses= same as preoperative diagnosis. Procedure= left sacroiliac joint steroid injection under fluoroscopic guidance. Anesthesia= local anesthesia with lidocaine 1% and IV moderate conscious sedation with fentanyl and Versed Estimated blood loss=minimal. Procedure indication= the patient had a history of severe chronic low back pain, diagnosed with sacroiliitis and lumbar sacral facet arthropathy unresponsive to conservative treatment. Procedure description= the patient was seen and identified in the preoperative holding area, risks and benefits and alternative of the procedure and possible complications discussed with the patient, patient signed the consent. an IV was started, and vital signs were monitored and were stable throughout the procedure, patient was placed in the prone position or table and the lumbosacral area was prepped and draped with a sterile fashion, vital signs were closely monitored during the procedure.The sacroiliac joint was identified on the AP view of fluoroscopy then the C-arm was tilted to the contralateral oblique position to superimpose the anterior and posterior joint lines on each other and to have a unified joint line with the target point at the inferior one third of this line. I used 22-gauge 3-1/2 inch Quincke spinal needle for this procedure and after getting into the sacroiliac joint I injected 40 mg of Kenalog +2 MLS of Ropivacaine 0.5%. Patient tolerated the procedure well without any complication, The patient returned to supine position after the back was cleaned and a Band- Aid applied, the patient transported to recovery room in stable condition and he was monitored for 30 minutes before she was discharged home in stable condition . patient will follow up with the pain clinic in a few weeks. A copy of the needle placement was saved to the C-arm machine.
[2020-04-19] MEDS ORDERED: IV FLUID CONTINUATION 800 ML IV ONE (10:54)
--- NOTE | 2020-04-19 11:02 | FL ---
EXAMINATION TYPE: FL guided pain mgmt statistic DATE OF EXAM: 04/19/2020 CLINICAL HISTORY: Left sacroiliac joint pain. TECHNIQUE: Fluoroscopy. COMPARISON: None. FINDINGS: Fluoroscopic guidance was provided during pain relief procedure performed by Dr. Russo . A total of 6 seconds of fluoroscopic time was utilized during the procedure and 1 spot images are a cquired. Single image acquired shows needle localization at level of inferior left sacroiliac joint. IMPRESSION: As Above.
[2020-04-19 11:34] VITALS: BP 109/66; PULSE 60; RESP 20
== END 2020-04-19 11:24 | disposition home or self-care (01) ==
LOC: ORPAIN 09:42
PROVIDERS: ATTEND Anesthesiology
DX: G89.29 Other chronic pain (principal); M53.3 Sacrococcygeal disorders, not elsewhere classified; M46.1 Sacroiliitis, not elsewhere classified; M47.897 Other spondylosis, lumbosacral region; E66.01 Morbid (severe) obesity due to excess calories; Z88.0 Allergy status to penicillin; Z88.5 Allergy status to narcotic agent; Z68.41 Body mass index [BMI] 40.0-44.9, adult; Z90.710 Acquired absence of both cervix and uterus
CPT/HCPCS: J2250; J3301; J3010; J2795; G0260; 27096

== ENCOUNTER 2023-02-27 23:04 | Emergency (ER) | payer BC, MEDICARE ==
--- NOTE | 2023-02-27 23:47 | ED ---
General Adult HPI - General Chief complaint: Shortness of Breath Stated complaint: SOB Time Seen by Provider: 02/27/23 23:08 Source: EMS Mode of arrival: EMS Limitations: no limitations - History of Present Illness Initial comments: Dictation was produced using [employer] dictation software. please excuse any grammatical, word or spelling errors. Chief Complaint: 83-year-old female presents from [facility] for hypoxia History of Present Illness: 83-year-old oxygen dependent female. She was placed on oxygen 2 L nasal cannula. She removed her is given oxygen to retrieve an item. She was witnessed by more spelled staff to not be wearing oxygen. She is complaining of shortness of breath. It is a cannula was replaced however she was still hypoxic. Apparently the [facility] staff is not allowed to turn the patient's oxygen. EMS was called patient brought to the ER. Patient has normal oxygen on her home O2. Patient requested that she be brought to the emergency department for shortness of breath for the last 3-4 days. Patient has a fever constitutional symptoms. The ROS documented in this emergency department record has been reviewed and confirmed by me. Those systems with pertinent positive or negative responses have been documented in the HPI. All other systems are other negative and/or noncontributory. - Related Data Home Medications Medication Instructions Recorded Confirmed FLUoxetine HCL [PROzac] 60 mg PO DAILY 05/06/17 05/09/20 Gabapentin [Neurontin] 300 mg PO TID 05/06/17 05/09/20 Omeprazole 20 mg PO DAILY 05/06/17 05/09/20 clonazePAM [Clonazepam] 2 mg PO HS 05/06/17 05/09/20 Acetaminophen [Tylenol 8 Hour] 650 mg PO DAILY PRN 12/21/19 05/09/20 Methotrexate/Pf [Rasuvo 10 mg/0.2 50 mg SQ TU 12/21/19 05/09/20 ml Autoinj] traZODone HCL [Desyrel] 150 mg PO HS 02/17/20 05/09/20 predniSONE 5 mg PO DAILY 03/15/20 05/09/20 Folic Acid 1 mg PO DAILY 04/01/20 05/09/20 Ibuprofen [Motrin] 200 mg PO DAILY PRN 04/01/20 05/09/20 Acetaminophen Tab [Tylenol] 500 mg PO Q6HR PRN 01/08/23 01/12/23 Budesonide-Formot 160-4.5 Mcg 2 puff INHALATION RT-BID 01/08/23 01/12/23 [Symbicort 160-4.5 Mcg Inhaler] Cholecalciferol [Vitamin D3 (125 125 mcg PO DAILY 01/08/23 01/12/23 Mcg = 5000 Iu)] Ciclopirox Olamine [Loprox 0.77% 1 applic TOPICAL DAILY 01/08/23 01/12/23 cream] Cyanocobalamin (Vitamin B-12) 1,000 mcg PO DAILY 01/08/23 01/12/23 [Vitamin B-12] FLUoxetine HCL [PROzac] 40 mg PO DAILY 01/08/23 01/12/23 Famotidine [Pepcid] 20 mg PO W/SUPPER 01/08/23 01/12/23 Fluticasone Nasal [place] [Flonase 1 spr EA NOSTRIL BID 01/08/23 01/12/23 Nasal [place]] Folic Acid 1 mg PO HS 01/08/23 01/12/23 Gabapentin [Neurontin] 300 mg PO TID 01/08/23 01/12/23 Ipratropium-Albuterol Nebulize 3 ml INHALATION RT-QID 01/08/23 01/12/23 [Duoneb 0.5 mg-3 mg/3 ml Soln] Levothyroxine Sodium [Synthroid] 25 mcg PO DAILY 01/08/23 01/12/23 Loperamide [Imodium] 2 mg PO QID PRN 01/08/23 01/12/23 Melatonin 10 mg PO HS 01/08/23 01/12/23 Methotrexate/Pf [Reditrex 25 mg/ml 15 mg SQ WE 01/08/23 01/12/23 Syringe] Multivitamins, Thera [Multivitamin 1 tab PO DAILY 01/08/23 01/12/23 (formulary)] Pantoprazole Sodium [Protonix] 40 mg PO DAILY 01/08/23 01/12/23 Rivastigmine Tartrate [Exelon] 3 mg PO BID 01/08/23 01/12/23 Rosuvastatin [Crestor] 10 mg PO HS 01/08/23 01/12/23 Thiamine [Vitamin B-1] 100 mg PO DAILY 01/08/23 01/12/23 clonazePAM [KlonoPIN] 0.5 mg PO DAILY 01/08/23 01/12/23 clonazePAM [KlonoPIN] 1 mg PO HS 01/08/23 01/12/23 rOPINIRole HCL [Requip] 1 mg PO HS PRN 01/08/23 01/12/23 traZODone HCL 150 mg PO HS 01/08/23 01/12/23 Previous Rx's Medication Instructions Recorded Spironolactone [Aldactone] 25 mg PO DAILY #30 tab 01/14/23 Torsemide [Demadex] 20 mg PO DAILY #30 tab 01/14/23 predniSONE 30 mg PO DAILY #9 tab 01/14/23 Allergies Allergy/AdvReac Type Severity Reaction Status Date / Time Penicillins Allergy Severe Swelling Verified 01/31/23 11:24 alendronate sodium Allergy Unknown Verified 01/31/23 11:24 morphine AdvReac Nausea & Verified 01/31/23 11:24 Vomiting Review of Systems ROS Statement: Those systems with pertinent positive or pertinent negative responses have been documented in the HPI. ROS Other: All systems not noted in ROS Statement are negative. Past Medical History Past Medical History: COPD, Dementia, Fibromyalgia, GERD/Reflux, Hyperlipidemia, Rheumatoid Arthritis (RA) Additional Past Medical History / Comment(s): OSTEOPOROSIS. CHRONIC BACK PAIN. fell out of bed 05/05/20 hit head knocked 1/2 tooth out, and fell on rt knee History of Any Multi-Drug Resistant Organisms: None Reported Past Surgical History: Adenoidectomy, Appendectomy, Hysterectomy, Joint Replac ement, Tonsillectomy Additional Past Surgical History / Comment(s): RT TKA, pain clinic procedures. Past Anesthesia/Blood Transfusion Reactions: No Reported Reaction Past Psychological History: Anxiety, Depression - Past Family History Father Family Medical History: Coronary Artery Disease (CAD) Mother Family Medical History: Coronary Artery Disease (CAD) General Exam - General Exam Comments Initial Comments: PHYSICAL EXAM: General Impression: Alert and oriented x3, not in acute distress HEENT: Normocephalic atraumatic, extra-ocular movements intact, pupils equal and reactive to light bilaterally, mucous membranes moist. Cardiovascular: Heart regular rate and rhythm Chest: Able to complete full sentences, no retractions, no tachypnea, mild diffuse wheezing Abdomen: abdomen soft, non-tender, non-distended, no organomegaly Musculoskeletal: Pulses present and equal in all extremities, no peripheral edema Motor: no focal deficits noted Neurological: CN II-XII grossly intact, no focal motor or sensory deficits noted Skin: Intact with no visualized rashes Psych: Normal affect and mood Limitations: no limitations Course Vital Signs 02/27/23 02/28/23 23:23 01:21 Temperature 97.0 F L Pulse Rate 72 77 Respiratory 18 20 Rate Blood Pressure 121/53 99/64 O2 Sat by Pulse 93 L 92 L Oximetry EKG Findings - EKG Comments: EKG Findings:: My EKG interpretation: Ventricular rate 71, sinus rhythm,. 167, QRS 114, QTc 476. No SD prolongation, no QTC prolongation, no ST or T-wave changes noted. EKG compared to 01/12/2023 showing no changes. Overall, this EKG is unremarkable Medical Decision Making - Medical Decision Making Was pt. sent in by a medical professional or institution (, PA, CHIEF I DISPATCHER, urgent care, hospital, or half-way...) When possible be specific @ -No Did you speak to anyone other than the patient for history (EMS, parent, family, police, friend...)? What history was obtained from this source @ -No Did you review nursing and triage notes (agree or disagree)? Why? @ -I reviewed and agree with nursing and triage notes Were old charts reviewed (outside hosp., previous admission, EMS record, old EKG, old radiological studies, urgent care reports/EKG's, half-way records)? Report findings @ -No old charts were reviewed Differential Diagnosis (chest pain, altered mental status, abdominal pain women, abdominal pain men, vaginal bleeding, musculoskeletal, weakness, fever, dyspnea, syncope, headache, dizziness, GI bleed, back pain, seizure, CVA, palpatations, mental health)? @ -Differential Dyspnea: Coronary syndrome, arrhythmia, tamponade, asthma, COPD, pulmonary embolism, pneumonia, pneumothorax, pulmonary effusion, anaphylaxis, diabetic ketoacidosis, flailed chest, pulmonary contusion, diaphragmatic rupture, anemia, neuromuscular, this is not meant to be an all-inclusive list. EKG interpreted by me (3pts min.). @ -See above X-rays interpreted by me (1pt min.). @ -Chest x-ray shows Vascular congestion CT interpreted by me (1pt min.). @ -None done U/S interpreted by me (1pt. min.). @ -None done What testing was considered but not performed or refused? (CT, X-rays, U/S, labs)? Why? @ -None What meds were considered but not given or refused? Why? @ -None Did you discuss the management of the patient with other professionals (professionals i.e. Dr., PA, CHIEF I DISPATCHER, lab, RT, psych nurse, licensed social worker, professor of kinesiology, teacher, investment officer, comp field case manager)? Give summary @ -No Was smoking cessation discussed for >3mins.? @ -No Was critical care preformed (if so, how long)? @ -No Were there social determinants of health that impacted care today? How? (Homelessness, low income, unemployed, alcoholism, drug addiction, transportation, low edu. Level, literacy, decrease access to med. care, residential, rehab)? @ -No Was there de-escalation of care discussed even if they declined (Discuss DNR or withdrawal of care, Hospice)? DNR status @ -No What co-morbidities impacted this encounter? (DM, HTN, Smoking, COPD, CAD, Cancer, CVA, ARF, Chemo, Hep., AIDS, mental health diagnosis, sleep apnea, morbid obesity)? @ -None Was patient admitted / discharged? Hospital course, mention meds given and route, prescriptions, significant lab abnormalities, going to OR and other pertinent info. @ -83-year-old female presents to the ER for dyspnea. Patient states that she removed her nasal cannula walk down the hallway. She understands that she is not supposed to take her home O2 off because she is dependent on it. Vital signs upon arrival are within acceptable limits. Patient appears well she's not dyspneic. Labs are within acceptable limits. Viral testing is negative. Patient observed in emergency department for approximately 3 hours vital be stable medical condition. Patient discharged Undiagnosed new problem with uncertain prognosis? @ -No Drug Therapy requiring intensive monitoring for toxicity (Heparin, Nitro, Insulin, Cardizem)? @ -No Were any procedures done? @ -No Diagnosis/symptom? Acute, or Chronic, or Acute on Chronic? Uncomplicated (without systemic symptoms) or Complicated (systemic symptoms)? @ -Dyspnea Side effects of treatment? @ -No Exacerbation, Progression, or Severe Exacerbation? @ -No Poses a threat to life or bodily function? How? (Chest pain, USA, MD, pneumonia, PE, COPD, DKA, ARF, appy, cholecystitis, CVA, Diverticulitis, Homicidal, Suicidal, threat to staff... and all critical care pts) @ -No - Lab Data Result diagrams: 02/27/23 23:21 02/27/23 23:21 Lab Results 02/27/23 02/27/23 02/28/23 Range/Units 23:21 23:21 00:33 WBC 13.2 H (3.8-10.6) k/uL RBC 3.91 (3.80-5.40) m/uL Hgb 11.8 (11.4-16.0) gm/dL Hct 36.5 (34.0-46.0) % MCV 93.2 (80.0-100.0) fL MCH 30.2 (25.0-35.0) pg MCHC 32.4 (31.0-37.0) g/dL RDW 16.6 H (11.5-15.5) % Plt Count 321 (150-450) k/uL MPV 7.9 Neutrophils % 68 % Lymphocytes % 15 % Monocytes % 11 % Eosinophils % 3 % Basophils % 0 % Neutrophils # 9.0 H (1.3-7.7) k/uL Lymphocytes # 2.0 (1.0-4.8) k/uL Monocytes # 1.4 H (0-1.0) k/uL Eosinophils # 0.4 (0-0.7) k/uL Basophils # 0.0 (0-0.2) k/uL Anisocytosis Slight Sodium 131 L (137-145) mmol/L Potassium 3.5 (3.5-5.1) mmol/L Chloride 88 L (98-107) mmol/L Carbon Dioxide 33 H (22-30) mmol/L Anion Gap 10 mmol/L BUN 43 H (7-17) mg/dL Creatinine 1.34 H (0.52-1.04) mg/dL Est GFR (CKD-EPI)AfAm 43 (>60 ml/min/1.73 sqM) Est GFR (CKD-EPI)NonAf 37 (>60 ml/min/1.73 sqM) Glucose 116 H (74-99) mg/dL Calcium 9.3 (8.4-10.2) mg/dL Influenza Type A (PCR) Not Detected (Not Detectd) Influenza Type B (PCR) Not Detected (Not Detectd) RSV (PCR) Not Detected (Not Detectd) SARS-CoV-2 (PCR) Not Detected (Not Detectd) Disposition Clinical Impression: Dyspnea Disposition: HOME SELF-CARE Condition: Good Instructions (If sedation given, give patient instructions): Dyspnea (ED) Is patient prescribed a controlled substance at d/c from ED?: No Referrals: Nonstaff,Physician [Primary Care Provider] - 1-2 days Time of Disposition: 02:18
[2023-02-28 00:01] LABS: Anisocytosis Slight; Basophils % (A) 0 %; Eosinophils # (A) 0.4 k/uL (0-0.7); Eosinophils % (A) 3 %; HCT 36.5 % (34.0-46.0); HGB 11.8 gm/dL (11.4-16.0); Lymphocytes % (A) 15 %; MCH 30.2 pg (25.0-35.0); MCHC 32.4 g/dL (31.0-37.0); MCV 93.2 fL (80.0-100.0); Mean Platelet Volume 7.9; Monocytes # (A) 1.4 k/uL (0-1.0); Monocytes % (A) 11 %; Neutrophils % (A) 68 %; Platelet Count 321 k/uL (150-450); RBC 3.91 m/uL (3.80-5.40); RDW 16.6 % (11.5-15.5); WBC 13.2 k/uL (3.8-10.6)
[2023-02-28 00:24] LABS: African American GFR (CKD) 43 (>60 ml/min/1.73 sqM); Anion Gap 10 mmol/L; Blood Urea Nitrogen 43 mg/dL (7-17); Calcium 9.3 mg/dL (8.4-10.2); Carbon Dioxide 33 mmol/L (22-30); Chloride 88 mmol/L (98-107); Glucose 116 mg/dL (74-99); Non-African American GFR(CKD) 37 (>60 ml/min/1.73 sqM); Potassium 3.5 mmol/L (3.5-5.1); Sodium 131 mmol/L (137-145)
--- NOTE | 2023-02-28 02:09 | XR ---
EXAM: XR Chest, 2 Views CLINICAL HISTORY: ITS.REASON XR Reason: dyspnea TECHNIQUE: Frontal and lateral views of the chest. COMPARISON: 01/12/2023 FINDINGS: Lungs: Vascular congestion. Pleural space: Unremarkable. No pneumothorax. No pleural effusions. Heart: Stable mild enlargement of the cardiac silhouette. Mediastinum: Unremarkable. Bones/joints: No acute osseous abnormalities. IMPRESSION: Vascular congestion.
[2023-02-28 15:51] VITALS: BP 105/53; PULSE 72; RESP 18; TEMP 97
== END 2023-02-28 04:32 | disposition home or self-care (01) ==
LOC: EC 23:04
DX: R06.00 Dyspnea, unspecified (principal); J44.9 Chronic obstructive pulmonary disease, unspecified; K21.9 Gastro-esophageal reflux disease without esophagitis; E78.5 Hyperlipidemia, unspecified; F41.9 Anxiety disorder, unspecified; F32.A Depression, unspecified; Z79.51 Long term (current) use of inhaled steroids; Z88.0 Allergy status to penicillin; Z88.5 Allergy status to narcotic agent; Z88.8 Allergy status to other drugs, medicaments and biological substances; Z20.822 Contact with and (suspected) exposure to COVID-19; Z90.49 Acquired absence of other specified parts of digestive tract
CPT/HCPCS: 36415; 71046; 80048; 85025; 87636; 93005; 99285

== ENCOUNTER 2023-03-29 02:07 | Observation (INO) | payer MEDICARE ==
[2023-03-29 02:22] LABS: Glucose,Whole Blood 108 mg/dL (70-110)
[2023-03-29] MEDS ORDERED: SODIUM CHLORIDE 0.9% 500 ML 500 ML IV ONE (02:45)
--- NOTE | 2023-03-29 04:05 | ED ---
Altered Mental Status HPI - General Source: EMS Mode of arrival: EMS <Archie Treviño - Last Filed: 03/29/23 04:08> <Angelo Austin - Last Filed: 03/29/23 07:29> - General Chief Complaint: Altered Mental Status Stated Complaint: Mental Health Time Seen by Provider: 03/29/23 02:36 - History of Present Illness Initial Comments: 83-year-old female presenting with chief complaint of altered mental status. Patient presents via EMS from [facility]. Per EMS report the patient is a and O 1, however at this time she is a and O 3. Patient reports that she has had a cough for several weeks. She also states that she is having difficulty breathing. She denies any chest pain, abdominal pain, nausea, vomiting. History is somewhat limited. (Archie Treviño) - Related Data Home Medications Medication Instructions Recorded Confirmed FLUoxetine HCL [PROzac] 60 mg PO DAILY 05/06/17 05/09/20 Gabapentin [Neurontin] 300 mg PO TID 05/06/17 05/09/20 Omeprazole 20 mg PO DAILY 05/06/17 05/09/20 clonazePAM [Clonazepam] 2 mg PO HS 05/06/17 05/09/20 Acetaminophen [Tylenol 8 Hour] 650 mg PO DAILY PRN 12/21/19 05/09/20 Methotrexate/Pf [Rasuvo 10 mg/0.2 50 mg SQ TU 12/21/19 05/09/20 ml Autoinj] traZODone HCL [Desyrel] 150 mg PO HS 02/17/20 05/09/20 predniSONE 5 mg PO DAILY 03/15/20 05/09/20 Folic Acid 1 mg PO DAILY 04/01/20 05/09/20 Ibuprofen [Motrin] 200 mg PO DAILY PRN 04/01/20 05/09/20 Acetaminophen Tab [Tylenol] 500 mg PO Q6HR PRN 01/08/23 01/12/23 Budesonide-Formot 160-4.5 Mcg 2 puff INHALATION RT-BID 01/08/23 01/12/23 [Symbicort 160-4.5 Mcg Inhaler] Cholecalciferol [Vitamin D3 (125 125 mcg PO DAILY 01/08/23 01/12/23 Mcg = 5000 Iu)] Ciclopirox Olamine [Loprox 0.77% 1 applic TOPICAL DAILY 01/08/23 01/12/23 cream] Cyanocobalamin (Vitamin B-12) 1,000 mcg PO DAILY 01/08/23 01/12/23 [Vitamin B-12] FLUoxetine HCL [PROzac] 40 mg PO DAILY 01/08/23 01/12/23 Famotidine [Pepcid] 20 mg PO W/SUPPER 01/08/23 01/12/23 Fluticasone Nasal [place] [Flonase 1 spr EA NOSTRIL BID 01/08/23 01/12/23 Nasal [place]] Folic Acid 1 mg PO HS 01/08/23 01/12/23 Gabapentin [Neurontin] 300 mg PO TID 01/08/23 01/12/23 Ipratropium-Albuterol Nebulize 3 ml INHALATION RT-QID 01/08/23 01/12/23 [Duoneb 0.5 mg-3 mg/3 ml Soln] Levothyroxine Sodium [Synthroid] 25 mcg PO DAILY 01/08/23 01/12/23 Loperamide [Imodium] 2 mg PO QID PRN 01/08/23 01/12/23 Melatonin 10 mg PO HS 01/08/23 01/12/23 Methotrexate/Pf [Reditrex 25 mg/ml 15 mg SQ WE 01/08/23 01/12/23 Syringe] Multivitamins, Thera [Multivitamin 1 tab PO DAILY 01/08/23 01/12/23 (formulary)] Pantoprazole Sodium [Protonix] 40 mg PO DAILY 01/08/23 01/12/23 Rivastigmine Tartrate [Exelon] 3 mg PO BID 01/08/23 01/12/23 Rosuvastatin [Crestor] 10 mg PO HS 01/08/23 01/12/23 Thiamine [Vitamin B-1] 100 mg PO DAILY 01/08/23 01/12/23 clonazePAM [KlonoPIN] 0.5 mg PO DAILY 01/08/23 01/12/23 clonazePAM [KlonoPIN] 1 mg PO HS 01/08/23 01/12/23 rOPINIRole HCL [Requip] 1 mg PO HS PRN 01/08/23 01/12/23 traZODone HCL 150 mg PO HS 01/08/23 01/12/23 Previous Rx's Medication Instructions Recorded Spironolactone [Aldactone] 25 mg PO DAILY #30 tab 01/14/23 Torsemide [Demadex] 20 mg PO DAILY #30 tab 01/14/23 predniSONE 30 mg PO DAILY #9 tab 01/14/23 Allergies Allergy/AdvReac Type Severity Reaction Status Date / Time Penicillins Allergy Severe Swelling Verified 03/29/23 02:19 alendronate sodium Allergy Unknown Verified 03/29/23 02:19 morphine AdvReac Nausea & Verified 03/29/23 02:19 Vomiting Review of Systems ROS Other: All systems not noted in ROS Statement are negative. <Archie Treviño - Last Filed: 03/29/23 04:08> ROS Other: All systems not noted in ROS Statement are negative. <Angelo Austin - Last Filed: 03/29/23 07:29> ROS Statement: Those systems with pertinent positive or pertinent negative responses have been documented in the HPI. Past Medical History Past Medical History: COPD, Dementia, Fibromyalgia, GERD/Reflux, Hyperlipidemia, Rheumatoid Arthritis (RA) Additional Past Medical History / Comment(s): OSTEOPOROSIS. CHRONIC BACK PAIN. fell out of bed 05/05/20 hit head knocked 1/2 tooth out, and fell on rt knee History of Any Multi-Drug Resistant Organisms: None Reported Past Surgical History: Adenoidectomy, Appendectomy, Hysterectomy, Joint Replacement, Tonsillectomy Additional Past Surgical History / Comment(s): RT TKA, pain clinic procedures. Past Anesthesia/Blood Transfusion Reactions: No Reported Reaction Past Psychological History: Anxiety, Depression Smoking Status: Former smoker Past Alcohol Use History: None Reported Past Drug Use History: None Reported - Past Family History Father Family Medical History: Coronary Artery Disease (CAD) Mother Family Medical History: Coronary Artery Disease (CAD) <Archie Treviño - Last Filed: 03/29/23 04:08> General Exam Limitations: altered mental status General appearance: alert, in no apparent distress Head exam: Present: atraumatic, normocephalic, normal inspection Eye exam: Present: normal appearance, EOMI Neck exam: Present: normal inspection, full ROM Respiratory exam: Present: normal lung sounds bilaterally. Absent: respiratory distress, wheezes, rales, rhonchi, stridor Cardiovascular Exam: Present: regular rate, normal rhythm, normal heart sounds. Absent: systolic murmur, diastolic murmur, rubs, gallop, clicks Neurological exam: Present: alert (Patient is able to answer to person place and time, however with more advanced questions patient is confused) Psychiatric exam: Present: normal affect, normal mood Skin exam: Present: warm, dry, intact <Archie Treviño - Last Filed: 03/29/23 04:08> Course Vital Signs 03/29/23 03/29/23 03/29/23 02:13 02:17 03:00 Temperature 97.1 F L Pulse Rate 57 L 61 62 Respiratory 20 19 20 Rate Blood Pressure 122/108 122/108 101/59 O2 Sat by Pulse 96 94 L 96 Oximetry 03/29/23 04:00 Temperature Pulse Rate 59 L Respiratory 18 Rate Blood Pressure 112/62 O2 Sat by Pulse 97 Oximetry Medical Decision Making - Lab Data Result diagrams: 03/29/23 03:13 <Archie Treviño - Last Filed: 03/29/23 04:08> - Lab Data Result diagrams: 03/29/23 03:13 03/29/23 03:13 <Angelo Austin - Last Filed: 03/29/23 07:29> - Medical Decision Making Patient's identity pending results workup. Presents complaining of mild confusion as well as upper respiratory symptoms with productive cough of green mucous. Patient's labs are remarkable for mild leukocytosis of 11.2. BNP within normal limits. Vital signs negative. Urine still pending at this time. Patient's chest x-ray shows findings suggestive of pneumonia versus vascular congestion, however clinically is presenting more as pneumonia. I did the patient. She will be admitted. I discussed the case with Dr. Talley accepted the admission. Patient started on levofloxacin. She was in agreement with this plan. Diagnosis/symptom? @ -Pneumonia Acute, or Chronic, or Acute on Chronic? @ -Acute Uncomplicated (without systemic symptoms) or Complicated (systemic symptoms)? @ -Complicated Side effects of treatment? @ -none Exacerbation, Progression, or Severe Exacerbation] @ -no Poses a threat to life or bodily function? @ -yes (Angelo Austin) - Lab Data Lab Results 03/29/23 03/29/23 03/29/23 Range/Units 02:20 03:13 03:13 WBC (3.8-10.6) k/uL RBC (3.80-5.40) m/uL Hgb (11.4-16.0) gm/dL Hct (34.0-46.0) % MCV (80.0-100.0) fL MCH (25.0-35.0) pg MCHC (31.0-37.0) g/dL RDW (11.5-15.5) % Plt Count (150-450) k/uL MPV Neutrophils % % Lymphocytes % % Monocytes % % Eosinophils % % Basophils % % Neutrophils # (1.3-7.7) k/uL Lymphocytes # (1.0-4.8) k/uL Monocytes # (0-1.0) k/uL Eosinophils # (0-0.7) k/uL Basophils # (0-0.2) k/uL Anisocytosis Macrocytosis PT 10.5 (9.0-12.0) sec INR 1.0 (<1.2) APTT 22.5 (22.0-30.0) sec Sodium 135 L (137-145) mmol/L Potassium 3.6 (3.5-5.1) mmol/L Chloride 95 L (98-107) mmol/L Carbon Dioxide 30 (22-30) mmol/L Anion Gap 10 mmol/L BUN 38 H (7-17) mg/dL Creatinine 1.17 H (0.52-1.04) mg/dL Est GFR (CKD-EPI)AfAm 51 (>60 ml/min/1.73 sqM) Est GFR (CKD-EPI)NonAf 44 (>60 ml/min/1.73 sqM) Glucose 109 H (74-99) mg/dL POC Glucose (mg/dL) 108 (70-110) mg/dL POC Glu Nut Sheller ID Edmar Emjosette Calcium 9.2 (8.4-10.2) mg/dL Total Bilirubin 0.5 (0.2-1.3) mg/dL AST 34 (14-36) U/L ALT 22 (4-34) U/L Alkaline Phosphatase 90 (38-126) U/L Troponin I (0.000-0.034) ng/mL NT-Pro-B Natriuret Pep pg/mL Total Protein 6.3 (6.3-8.2) g/dL Albumin 3.7 (3.5-5.0) g/dL Influenza Type A (PCR) (Not Detectd) Influenza Type B (PCR) (Not Detectd) RSV (PCR) (Not Detectd) SARS-CoV-2 (PCR) (Not Detectd) 03/29/23 03/29/23 03/29/23 Range/Units 03:13 03:13 03:13 WBC 11.2 H (3.8-10.6) k/uL RBC 3.37 L (3.80-5.40) m/uL Hgb 10.9 L (11.4-16.0) gm/dL Hct 32.4 L (34.0-46.0) % MCV 96.1 (80.0-100.0) fL MCH 32.3 (25.0-35.0) pg MCHC 33.6 (31.0-37.0) g/dL RDW 17.5 H (11.5-15.5) % Plt Count 286 (150-450) k/uL MPV 7.0 Neutrophils % 73 % Lymphocytes % 15 % Monocytes % 5 % Eosinophils % 5 % Basophils % 0 % Neutrophils # 8.2 H (1.3-7.7) k/uL Lymphocytes # 1.7 (1.0-4.8) k/uL Monocytes # 0.5 (0-1.0) k/uL Eosinophils # 0.5 (0-0.7) k/uL Basophils # 0.0 (0-0.2) k/uL Anisocytosis Slight Macrocytosis Slight PT (9.0-12.0) sec INR (<1.2) APTT (22.0-30.0) sec Sodium (137-145) mmol/L Potassium (3.5-5.1) mmol/L Chloride (98-107) mmol/L Carbon Dioxide (22-30) mmol/L Anion Gap mmol/L BUN (7-17) mg/dL Creatinine (0.52-1.04) mg/dL Est GFR (CKD-EPI)AfAm (>60 ml/min/1.73 sqM) Est GFR (CKD-EPI)NonAf (>60 ml/min/1.73 sqM) Glucose (74-99) mg/dL POC Glucose (mg/dL) (70-110) mg/dL POC Glu Nut Sheller ID Calcium (8.4-10.2) mg/dL Total Bilirubin (0.2-1.3) mg/dL AST (14-36) U/L ALT (4-34) U/L Alkaline Phosphatase (38-126) U/L Troponin I 0.015 (0.000-0.034) ng/mL NT-Pro-B Natriuret Pep 404 pg/mL Total Protein (6.3-8.2) g/dL Albumin (3.5-5.0) g/dL Influenza Type A (PCR) (Not Detectd) Influenza Type B (PCR) (Not Detectd) RSV (PCR) (Not Detectd) SARS-CoV-2 (PCR) (Not Detectd) 03/29/23 Range/Units 05:06 WBC (3.8-10.6) k/uL RBC (3.80-5.40) m/uL Hgb (11.4-16.0) gm/dL Hct (34.0-46.0) % MCV (80.0-100.0) fL MCH (25.0-35.0) pg MCHC (31.0-37.0) g/dL RDW (11.5-15.5) % Plt Count (150-450) k/uL MPV Neutrophils % % Lymphocytes % % Monocytes % % Eosinophils % % Basophils % % Neutrophils # (1.3-7.7) k/uL Lymphocytes # (1.0-4.8) k/uL Monocytes # (0-1.0) k/uL Eosinophils # (0-0.7) k/uL Basophils # (0-0.2) k/uL Anisocytosis Macrocytosis PT (9.0-12.0) sec INR (<1.2) APTT (22.0-30.0) sec Sodium (137-145) mmol/L Potassium (3.5-5.1) mmol/L Chloride (98-107) mmol/L Carbon Dioxide (22-30) mmol/L Anion Gap mmol/L BUN (7-17) mg/dL Creatinine (0.52-1.04) mg/dL Est GFR (CKD-EPI)AfAm (>60 ml/min/1.73 sqM) Est GFR (CKD-EPI)NonAf (>60 ml/min/1.73 sqM) Glucose (74-99) mg/dL POC Glucose (mg/dL) (70-110) mg/dL POC Glu Nut Sheller ID Calcium (8.4-10.2) mg/dL Total Bilirubin (0.2-1.3) mg/dL AST (14-36) U/L ALT (4-34) U/L Alkaline Phosphatase (38-126) U/L Troponin I (0.000-0.034) ng/mL NT-Pro-B Natriuret Pep pg/mL Total Protein (6.3-8.2) g/dL Albumin (3.5-5.0) g/dL Influenza Type A (PCR) Not Detected (Not Detectd) Influenza Type B (PCR) Not Detected (Not Detectd) RSV (PCR) Not Detected (Not Detectd) SARS-CoV-2 (PCR) Not Detected (Not Detectd) Disposition <Archie Treviño - Last Filed: 03/29/23 04:08> Time of Disposition: 06:25 <Angelo Austin - Last Filed: 03/29/23 07:29> Clinical Impression: Pneumonia Disposition: ADMITTED IP TO THIS HOSP Condition: Stable
[2023-03-29 04:07] LABS: Anisocytosis Slight; Basophils % (A) 0 %; Eosinophils # (A) 0.5 k/uL (0-0.7); Eosinophils % (A) 5 %; HCT 32.4 % (34.0-46.0); HGB 10.9 gm/dL (11.4-16.0); Lymphocytes # (A) 1.7 k/uL (1.0-4.8); Lymphocytes % (A) 15 %; MCH 32.3 pg (25.0-35.0); MCHC 33.6 g/dL (31.0-37.0); MCV 96.1 fL (80.0-100.0); Macrocytosis Slight; Monocytes # (A) 0.5 k/uL (0-1.0); Monocytes % (A) 5 %; Neutrophils # (A) 8.2 k/uL (1.3-7.7); Neutrophils % (A) 73 %; Platelet Count 286 k/uL (150-450); RBC 3.37 m/uL (3.80-5.40); RDW 17.5 % (11.5-15.5); WBC 11.2 k/uL (3.8-10.6)
[2023-03-29 04:24] LABS: ALT 22 U/L (4-34); AST 34 U/L (14-36); African American GFR (CKD) 51 (>60 ml/min/1.73 sqM); Albumin 3.7 g/dL (3.5-5.0); Alkaline Phosphatase 90 U/L (38-126); Anion Gap 10 mmol/L; Blood Urea Nitrogen 38 mg/dL (7-17); Calcium 9.2 mg/dL (8.4-10.2); Carbon Dioxide 30 mmol/L (22-30); Chloride 95 mmol/L (98-107); Glucose 109 mg/dL (74-99); Non-African American GFR(CKD) 44 (>60 ml/min/1.73 sqM); Potassium 3.6 mmol/L (3.5-5.1); Sodium 135 mmol/L (137-145); Total Bilirubin 0.5 mg/dL (0.2-1.3); Total Protein 6.3 g/dL (6.3-8.2)
[2023-03-29 05:06] LABS: Partial Thromboplastin Time 22.5 sec (22.0-30.0); Prothrombin Time 10.5 sec (9.0-12.0)
--- NOTE | 2023-03-29 05:45 | XR ---
EXAMINATION TYPE: XR chest 2V DATE OF EXAM: 03/29/2023 COMPARISON: Prior chest x-ray February 28, 2023 HISTORY: Altered mental status. TECHNIQUE: Frontal and lateral views of the chest are obtained. FINDINGS: There is diminish inspiration with cardiomegaly and central vascular congestion. No pleura l effusion or pneumothorax is seen bilaterally The osseous structures are intact. IMPRESSION: Findings are consistent with CHF exacerbation as there is more prominent cardiomegaly and central vascular congestion noted. Correlate clinically.
[2023-03-29] MEDS ORDERED: PNEUMONIA PROTOCOL UTILIZED 1 EACH MISC PO PRN (06:31)
[2023-03-29] MEDS ORDERED: LEVOFLOXACIN 750MG-D5W PMX 750 MG in DEXTROSE/WATER 1 150ML.BAG IVPB STA (06:31)
[2023-03-29 09:01] LABS: Appearance,Urine Clear (Clear); Bilirubin,Urine Negative (Negative); Blood,Urine Negative (Negative); Color,Urine Colorless; Glucose,Urine (UA) Negative (Negative); Ketones,Urine Negative (Negative); Leukocyte Esterase,Urine Negative (Negative); Nitrite,Urine Negative (Negative); PH, Urine 6.5 (5.0-8.0); Protein,Urine Negative (Negative); Specific Gravity,Urine 1.012 (1.001-1.035); Urobilinogen,Urine <2.0 mg/dL (<2.0)
[2023-03-29] MEDS ORDERED: LOPERAMIDE 2 MG CAP PO PRN (10:58)
[2023-03-29] MEDS ORDERED: IBUPROFEN 200 MG TAB PO PRN (10:58)
[2023-03-29] MEDS ORDERED: ACETAMINOPHEN TAB 500 MG TAB PO PRN (10:58)
[2023-03-29] MEDS ORDERED: FLUoxetine HCL 20 MG CAP PO SCH (11:00)
[2023-03-29] MEDS ORDERED: busPIRone HCl 5 MG TAB PO SCH (11:15)
[2023-03-29] MEDS ORDERED: PANTOPRAZOLE 40 MG TABLET PO SCH (11:15)
[2023-03-29] MEDS ORDERED: SYMBICORT 160-4.5 MCG INHALER INHALATION SCH (11:15)
[2023-03-29] MEDS ORDERED: DONEPEZIL 10 MG TAB PO SCH (11:15)
[2023-03-29] MEDS ORDERED: LEVOTHYROXINE 75 MCG TAB PO SCH (11:15)
[2023-03-29] MEDS ORDERED: THIAMINE 100 MG TAB PO SCH (11:15)
[2023-03-29] MEDS ORDERED: clonazePAM 0.5 MG TAB PO SCH (11:15)
[2023-03-29] MEDS ORDERED: allopurinoL 100 MG TAB PO SCH (11:15)
[2023-03-29] MEDS: IPRATROPIUM-ALBUTEROL 3 ML NEB INHALATION SCH ×2 (11:20→15:39)
[2023-03-29 15:10] VITALS: RESP 16
[2023-03-29 16:01] VITALS: BP 104/57; PULSE 70; TEMP 97.4
[2023-03-29] MEDS ORDERED: ARIPiprazole 5 MG TAB PO SCH (17:00)
--- NOTE | 2023-03-29 18:28 | P.HPIM ---
History of Present Illness H&P Date: 03/29/23 Chief Complaint: Cough This is a 83-year-old patient, follows with visiting physicians Dr. Bravo. Brought to the ER yesterday evening with some altered mentation. Per the EMS report from [facility] she was given 1. In the ER she was AO 3. She's had a cough for some time. Some trouble breathing. No pain. ER patient is felt to have pneumonia started on Levaquin. Resting in bed. Tired. No pain. Review of systems: GEN.: Tired EYES: None HEENT: None NECK: None RESPIRATORY: Occasional cough CARDIOVASCULAR: None GASTROINTESTINAL: None GENITOURINARY: None MUSCULOSKELETAL: None LYMPHATICS: None HEMATOLOGICAL: None PSYCHIATRY: Forgetful NEUROLOGICAL: None Past medical history to include: COPD, dementia, fibromyalgia, GERD, hypertension, hyperlipidemia, osteoporosis, anxiety depression Social history: Lives at [facility]. No alcohol. Smoked for 20 years about 3-4 cigarettes a day stopped in 1980. Physical examination: VITAL SIGNS: 97.1, 57, 20, 1 22 x 1 08, 96% on 3 L GENERAL: BMI 33.9, laying in bed tired. EYES: Pupils equal. Conjunctiva normal. HEENT: External appearance of nose and ears normal, oral cavity grossly normal. NECK: JVD not raised; masses not palpable. HEART: First and second heart sounds are normal; no edema. LUNGS: Respiratory rate normal; clear to auscultation. ABDOMEN: Soft, nontender, liver spleen not palpable, no masses palpable. PSYCH: [Answering simple questions l. MUSCULOSKELETAL:No Clubbing/cyanosis;muscles-grossly intact. OA NEUROLOGICAL: Cranial nerves grossly intact; no facial asymmetry, power and sensation grossly intact. LYMPHATICS: No lymph nodes palpable in the axilla and neck INVESTIGATIONS, reviewed in the clinical context: White count 11.2 hemoglobin 10.9 platelets 286 sodium 135 potassium 3.6 BUN 38 creatinine 1.17 UA: Negative EKG tracing personally reviewed by me-sinus bradycardia. Nonspecific ST/T-wave changes. Chest x-ray film [personally reviewed by me]. Underpenetrated. Questionable infiltrate Assessment and plan: -Probable pneumonia, suspected gram-negative organism Given IV Levaquin because of penicillin ALLERGY. -Acute metabolic encephalopathy likely from underlying pneumonia. -Hyperuricemia Allopurinol -Depression, anxiety Abilify, BuSpar, Klonopin, Prozac -Peripheral neuropathy Neurontin -Hypothyroid Synthroid -Chronic insomnia Melatonin -GERD Protonix -Hyperlipidemia Crestor -COPD in an ex-smoker Symbicort -Restless legs syndrome Requip Home medications resumed. Spoke to the nurse. We'll see how the patient doesn't feeding. Levaquin. Currently no family present. INVESTIGATIONS, reviewed in the clinical context: Past Medical History Past Medical History: COPD, Dementia, Fibromyalgia, GERD/Reflux, Hyperlipidemia, Rheumatoid Arthritis (RA) Additional Past Medical History / Comment(s): OSTEOPOROSIS. CHRONIC BACK PAIN. fell out of bed 05/05/20 hit head knocked 1/2 tooth out, and fell on rt knee History of Any Multi-Drug Resistant Organisms: None Reported Past Surgical History: Adenoidectomy, Appendectomy, Hysterectomy, Joint Replacement, Tonsillectomy Additional Past Surgical History / Comment(s): RT TKA, pain clinic procedures. Past Anesthesia/Blood Transfusion Reactions: No Reported Reaction Past Psychological History: Anxiety, Depression Smoking Status: Former smoker Past Alcohol Use History: None Reported Past Drug Use History: None Reported - Past Family History Father Family Medical History: Coronary Artery Disease (CAD) Mother Family Medical History: Coronary Artery Disease (CAD) Medications and Allergies Home Medications Medication Instructions Recorded Confirmed Type Acetaminophen Tab [Tylenol] 500 mg PO Q6HR PRN 01/08/23 03/29/23 History Budesonide-Formot 160-4.5 Mcg 2 puff INHALATION RT-BID 01/08/23 03/29/23 History [Symbicort 160-4.5 Mcg Inhaler] Ciclopirox Olamine [Loprox 0.77% 1 applic TOPICAL DAILY 01/08/23 03/29/23 History cream] FLUoxetine HCL [PROzac] 40 mg PO DAILY 01/08/23 03/29/23 History Fluticasone Nasal [place] [Flonase 1 spr EA NOSTRIL BID 01/08/23 03/29/23 History Nasal [place]] Folic Acid 1 mg PO HS 01/08/23 03/29/23 History Gabapentin [Neurontin] 300 mg PO TID 01/08/23 03/29/23 History Ipratropium-Albuterol Nebulize 3 ml INHALATION RT-QID 01/08/23 03/29/23 History [Duoneb 0.5 mg-3 mg/3 ml Soln] Loperamide [Imodium] 2 mg PO QID PRN 01/08/23 03/29/23 History Melatonin 10 mg PO HS 01/08/23 03/29/23 History Methotrexate/Pf [Reditrex 25 mg/ml 15 mg SQ WE 01/08/23 03/29/23 History Syringe] Multivitamins, Thera [Multivitamin 1 tab PO DAILY 01/08/23 03/29/23 History (formulary)] Pantoprazole Sodium [Protonix] 40 mg PO DAILY 01/08/23 03/29/23 History Rivastigmine Tartrate [Exelon] 3 mg PO BID 01/08/23 03/29/23 History Rosuvastatin [Crestor] 10 mg PO HS 01/08/23 03/29/23 History Thiamine [Vitamin B-1] 100 mg PO DAILY 01/08/23 03/29/23 History clonazePAM [KlonoPIN] 0.5 mg PO DAILY 01/08/23 03/29/23 History clonazePAM [KlonoPIN] 1 mg PO HS 01/08/23 03/29/23 History rOPINIRole HCL [Requip] 1 mg PO HS PRN 01/08/23 03/29/23 History traZODone HCL 150 mg PO HS 01/08/23 03/29/23 History Spironolactone [Aldactone] 25 mg PO DAILY #30 tab 01/14/23 03/29/23 Rx ARIPiprazole [Abilify] 2.5 mg PO DAILY@1700 03/29/23 03/29/23 History Cetirizine HCl [Zyrtec] 10 mg PO DAILY 03/29/23 03/29/23 History Chlorhexidine Gluconate [Peridex] 15 ml PO BID 03/29/23 03/29/23 History Cholecalciferol (Vitamin D3) 125 mcg PO DAILY 03/29/23 03/29/23 History [Vitamin D3 (125 MCG = 5,000 IU)] Ibuprofen [Motrin Ib] 200 mg PO Q6H PRN 03/29/23 03/29/23 History Levofloxacin [Levaquin] 750 mg PO Q48H #2 tab 03/29/23 Rx Levothyroxine Sodium [Synthroid] 37.5 mcg PO DAILY 03/29/23 03/29/23 History Polymyxin B-Trimeth Sulf Ophth 1 drop BOTH EYES QID 03/29/23 03/29/23 History [Polytrim Opthalmic] Triamcinolone 0.5% Ointment 1 applic TOPICAL BID 03/29/23 03/29/23 History Triamterene-Hctz 37.5-25Mg 1 cap PO DAILY 03/29/23 03/29/23 History [Dyazide 37.5-25 Capsule] allopurinoL 100 mg PO DAILY 03/29/23 03/29/23 History busPIRone HCL 15 mg PO BID 03/29/23 03/29/23 History Allergies Allergy/AdvReac Type Severity Reaction Status Date / Time Penicillins Allergy Severe Swelling Verified 03/29/23 09:07 alendronate sodium Allergy Unknown Verified 03/29/23 09:07 morphine AdvReac Nausea & Verified 03/29/23 09:07 Vomiting Physical Exam Vitals: Vital Signs Temp Pulse Resp BP Pulse Ox 03/29/23 08:54 98.1 F 67 18 106/63 95 03/29/23 07:36 97.6 F 64 18 109/66 95 03/29/23 04:00 59 L 18 112/62 97 03/29/23 03:00 62 20 101/59 96 03/29/23 02:17 61 19 122/108 94 L 03/29/23 02:13 97.1 F L 57 L 20 122/108 96 Intake and Output 03/28/23 03/29/23 03/29/23 22:59 06:59 14:59 Other: Weight 99.79 kg Results CBC & Chem 7: 03/29/23 03:13 03/29/23 03:13 Labs: Abnormal Lab Results - Last 24 Hours (Table) 03/29/23 03/29/23 Range/Units 03:13 03:13 WBC 11.2 H (3.8-10.6) k/uL RBC 3.37 L (3.80-5.40) m/uL Hgb 10.9 L (11.4-16.0) gm/dL Hct 32.4 L (34.0-46.0) % RDW 17.5 H (11.5-15.5) % Neutrophils # 8.2 H (1.3-7.7) k/uL Sodium 135 L (137-145) mmol/L Chloride 95 L (98-107) mmol/L BUN 38 H (7-17) mg/dL Creatinine 1.17 H (0.52-1.04) mg/dL Glucose 109 H (74-99) mg/dL
--- NOTE | 2023-03-29 18:50 | P.DS ---
Providers Date of admission: 03/29/23 06:32 Expected date of discharge: 03/29/23 Attending physician: Von Talley Primary care physician: Romulo Bravo [facility] Course: Chief Complaint: Cough This is a 83-year-old patient, follows with visiting physicians Dr. Bravo. Brought to the ER yesterday evening with some altered mentation. Per the EMS report from [facility] she was given 1. In the ER she was AO 3. She's had a cough for some time. Some trouble breathing. No pain. ER patient is felt to have pneumonia started on Levaquin. Resting in bed. Tired. No pain. Patient did well this afternoon. Tolerating diet. Comfortable. Breathing stable. He'll be discharged to short course of antibiotic. Past medical history to include: COPD, dementia, fibromyalgia, GERD, hypertension, hyperlipidemia, osteoporosis, anxiety depression Social history: Lives at [facility]. No alcohol. Smoked for 20 years about 3-4 cigarettes a day stopped in 1980. Physical examination: VITAL SIGNS: 97.1, 57, 20, 1 22 x 1 08, 96% on 3 L GENERAL: BMI 33.9, laying in bed tired. EYES: Pupils equal. Conjunctiva normal. HEENT: External appearance of nose and ears normal, oral cavity grossly normal. NECK: JVD not raised; masses not palpable. HEART: First and second heart sounds are normal; no edema. LUNGS: Respiratory rate normal; clear to auscultation. ABDOMEN: Soft, nontender, liver spleen not palpable, no masses palpable. PSYCH: [Answering simple questions l. MUSCULOSKELETAL:No Clubbing/cyanosis;muscles-grossly intact. OA NEUROLOGICAL: Cranial nerves grossly intact; no facial asymmetry, power and sensation grossly intact. LYMPHATICS: No lymph nodes palpable in the axilla and neck INVESTIGATIONS, reviewed in the clinical context: White count 11.2 hemoglobin 10.9 platelets 286 sodium 135 potassium 3.6 BUN 38 creatinine 1.17 UA: Negative EKG tracing personally reviewed by me-sinus bradycardia. Nonspecific ST/T-wave changes. Chest x-ray film [personally reviewed by me]. Underpenetrated. Questionable infiltrate Assessment and plan: -Probable pneumonia, suspected gram-negative organism Given IV Levaquin because of penicillin ALLERGY. Complete a short course of antibiotic -Acute metabolic encephalopathy likely from underlying pneumonia.: Better -Hyperuricemia Allopurinol -Depression, anxiety Abilify, BuSpar, Klonopin, Prozac -Peripheral neuropathy Neurontin -Hypothyroid Synthroid -Chronic insomnia Melatonin -GERD Protonix -Hyperlipidemia Crestor -COPD in an ex-smoker Symbicort -Restless legs syndrome Requip Disposition: [facility] Past Medical History Past Medical History: COPD, Dementia, Fibromyalgia, GERD/Reflux, Hyperlipidemia, Rheumatoid Arthritis (RA) Additional Past Medical History / Comment(s): OSTEOPOROSIS. CHRONIC BACK PAIN. fell out of bed 05/05/20 hit head knocked 1/2 tooth out, and fell on rt knee History of Any Multi-Drug Resistant Organisms: None Reported Past Surgical History: Adenoidectomy, Appendectomy, Hysterectomy, Joint Replacement, Tonsillectomy Additional Past Surgical History / Comment(s): RT TKA, pain clinic procedures. Past Anesthesia/Blood Transfusion Reactions: No Reported Reaction Past Psychological History: Anxiety, Depression Smoking Status: Former smoker Past Alcohol Use History: None Reported Past Drug Use History: None Reported - Past Family History Father Family Medical History: Coronary Artery Disease (CAD) Mother Family Medical History: Coronary Artery Disease (CAD) Plan - Discharge Summary Discharge Rx Participant: Yes New Discharge Prescriptions: New Levofloxacin [Levaquin] 750 mg PO Q48H #2 tab Continue Loperamide [Imodium] 2 mg PO QID PRN PRN Reason: Diarrhea Thiamine [Vitamin B-1] 100 mg PO DAILY traZODone HCL 150 mg PO HS Pantoprazole Sodium [Protonix] 40 mg PO DAILY Multivitamins, Thera [Multivitamin (formulary)] 1 tab PO DAILY Methotrexate/Pf [Reditrex 25 mg/ml Syringe] 15 mg SQ WE Melatonin 10 mg PO HS Gabapentin [Neurontin] 300 mg PO TID FLUoxetine HCL [PROzac] 40 mg PO DAILY clonazePAM [KlonoPIN] 1 mg PO HS Ciclopirox Olamine [Loprox 0.77% cream] 1 applic TOPICAL DAILY Ipratropium-Albuterol Nebulize [Duoneb 0.5 mg-3 mg/3 ml Soln] 3 ml INHALATION RT-QID allopurinoL 100 mg PO DAILY ARIPiprazole [Abilify] 2.5 mg PO DAILY@1700 busPIRone HCL 15 mg PO BID Chlorhexidine Gluconate [Peridex] 15 ml PO BID Cholecalciferol (Vitamin D3) [Vitamin D3 (125 MCG = 5,000 IU)] 125 mcg PO DAILY Levothyroxine Sodium [Synthroid] 37.5 mcg PO DAILY Polymyxin B-Trimeth Sulf Ophth [Polytrim Opthalmic] 1 drop BOTH EYES QID Triamterene-Hctz 37.5-25Mg [Dyazide 37.5-25 Capsule] 1 cap PO DAILY rOPINIRole HCL [Requip] 1 mg PO HS PRN PRN Reason: restless legs Acetaminophen Tab [Tylenol] 500 mg PO Q6HR PRN PRN Reason: Pain Or Fever > 100.5 Rosuvastatin [Crestor] 10 mg PO HS Budesonide-Formot 160-4.5 Mcg [Symbicort 160-4.5 Mcg Inhaler] 2 puff INHALATION RT-BID Rivastigmine Tartrate [Exelon] 3 mg PO BID Folic Acid 1 mg PO HS Fluticasone Nasal [place] [Flonase Nasal [place]] 1 spr EA NOSTRIL BID clonazePAM [KlonoPIN] 0.5 mg PO DAILY Spironolactone [Aldactone] 25 mg PO DAILY #30 tab Triamcinolone 0.5% Ointment 1 applic TOPICAL BID Cetirizine HCl [Zyrtec] 10 mg PO DAILY Ibuprofen [Motrin Ib] 200 mg PO Q6H PRN PRN Reason: Pain Discharge Medication List Acetaminophen Tab [Tylenol] 500 mg PO Q6HR PRN 01/08/23 [History] Budesonide-Formot 160-4.5 Mcg [Symbicort 160-4.5 Mcg Inhaler] 2 puff INHALATION RT-BID 01/08/23 [History] Ciclopirox Olamine [Loprox 0.77% cream] 1 applic TOPICAL DAILY 01/08/23 [History] FLUoxetine HCL [PROzac] 40 mg PO DAILY 01/08/23 [History] Fluticasone Nasal [place] [Flonase Nasal [place]] 1 spr EA NOSTRIL BID 01/08/23 [History] Folic Acid 1 mg PO HS 01/08/23 [History] Gabapentin [Neurontin] 300 mg PO TID 01/08/23 [History] Ipratropium-Albuterol Nebulize [Duoneb 0.5 mg-3 mg/3 ml Soln] 3 ml INHALATION RT-QID 01/08/23 [History] Loperamide [Imodium] 2 mg PO QID PRN 01/08/23 [History] Melatonin 10 mg PO HS 01/08/23 [History] Methotrexate/Pf [Reditrex 25 mg/ml Syringe] 15 mg SQ WE 01/08/23 [History] Multivitamins, Thera [Multivitamin (formulary)] 1 tab PO DAILY 01/08/23 [History] Pantoprazole Sodium [Protonix] 40 mg PO DAILY 01/08/23 [History] Rivastigmine Tartrate [Exelon] 3 mg PO BID 01/08/23 [History] Rosuvastatin [Crestor] 10 mg PO HS 01/08/23 [History] Thiamine [Vitamin B-1] 100 mg PO DAILY 01/08/23 [History] clonazePAM [KlonoPIN] 0.5 mg PO DAILY 01/08/23 [History] clonazePAM [KlonoPIN] 1 mg PO HS 01/08/23 [History] rOPINIRole HCL [Requip] 1 mg PO HS PRN 01/08/23 [History] traZODone HCL 150 mg PO HS 01/08/23 [History] Spironolactone [Aldactone] 25 mg PO DAILY #30 tab 01/14/23 [Rx] ARIPiprazole [Abilify] 2.5 mg PO DAILY@1700 03/29/23 [History] Cetirizine HCl [Zyrtec] 10 mg PO DAILY 03/29/23 [History] Chlorhexidine Gluconate [Peridex] 15 ml PO BID 03/29/23 [History] Cholecalciferol (Vitamin D3) [Vitamin D3 (125 MCG = 5,000 IU)] 125 mcg PO DAILY 03/29/23 [History] Ibuprofen [Motrin Ib] 200 mg PO Q6H PRN 03/29/23 [History] Levofloxacin [Levaquin] 750 mg PO Q48H #2 tab 03/29/23 [Rx] Levothyroxine Sodium [Synthroid] 37.5 mcg PO DAILY 03/29/23 [History] Polymyxin B-Trimeth Sulf Ophth [Polytrim Opthalmic] 1 drop BOTH EYES QID 03/29/23 [History] Triamcinolone 0.5% Ointment 1 applic TOPICAL BID 03/29/23 [History] Triamterene-Hctz 37.5-25Mg [Dyazide 37.5-25 Capsule] 1 cap PO DAILY 03/29/23 [History] allopurinoL 100 mg PO DAILY 03/29/23 [History] busPIRone HCL 15 mg PO BID 03/29/23 [History] Follow up Appointment(s)/Referral(s): Romulo Bravo MD [Primary Care Provider] - 1-2 days [facility] [REFERRING] - 1 Week Discharge Disposition: TRANSFER TO SNF/ECF
[2023-03-29] MEDS ORDERED: ATORVASTATIN 20 MG TAB PO SCH (21:00)
[2023-03-29] MEDS ORDERED: clonazePAM 1 MG TAB PO SCH (21:00)
[2023-03-29] MEDS ORDERED: FOLIC ACID 1 MG TAB PO SCH (21:00)
[2023-03-29] MEDS ORDERED: traZODone HCL 50 MG TAB PO SCH (21:00)
[2023-03-29] MEDS ORDERED: GABAPENTIN 300 MG CAP PO SCH (21:00)
[2023-03-29] MEDS ORDERED: MELATONIN 5 MG TABLET PO SCH (21:00)
[2023-03-30] MEDS ORDERED: CHOLECALCIFEROL 125 MCG (5000 IU) TABLET PO SCH (09:00)
[2023-03-30] MEDS ORDERED: LEVOFLOXACIN 750 MG TAB PO SCH (09:00)
== END 2023-03-29 16:36 ==
LOC: EC 02:07 → 6NMEDSUR 06:32
PROVIDERS: ADMIT Hospitalist; ATTEND Hospitalist
DX: G93.41 Metabolic encephalopathy (principal); J44.9 Chronic obstructive pulmonary disease, unspecified; F03.90 Unspecified dementia, unspecified severity, without behavioral disturbance, psychotic disturbance, mood disturbance, and anxiety; M79.7 Fibromyalgia; K21.9 Gastro-esophageal reflux disease without esophagitis; E78.5 Hyperlipidemia, unspecified; G89.29 Other chronic pain; M54.9 Dorsalgia, unspecified; F41.9 Anxiety disorder, unspecified; F32.A Depression, unspecified; I10 Essential (primary) hypertension; E79.0 Hyperuricemia without signs of inflammatory arthritis and tophaceous disease; G62.9 Polyneuropathy, unspecified; E03.9 Hypothyroidism, unspecified; F51.04 Psychophysiologic insomnia; G25.81 Restless legs syndrome; Z20.822 Contact with and (suspected) exposure to COVID-19; Z87.891 Personal history of nicotine dependence; Z79.899 Other long term (current) drug therapy; Z79.52 Long term (current) use of systemic steroids; Z79.51 Long term (current) use of inhaled steroids; Z79.890 Hormone replacement therapy; Z88.0 Allergy status to penicillin; Z88.5 Allergy status to narcotic agent
CPT/HCPCS: 96366 ×2; 96365; 99285; 36415; 94640 ×2; 93005; 83880; 80053; 87449; 84484; 85025; 85610; 85730; 81003; 87040; 87636; 71046; G0378; J1956